=== PATIENT | female | born 1995 | race Caucasian/White ===

== ENCOUNTER 2016-10-28 11:58 | Emergency (ER) | payer BC, OTHER ==
--- NOTE | 2016-10-28 12:08 | ER Document Report ---
ED Medical Screen (RME) - General Stated Complaint: POSSIBLE SYNCOPE Notes: Patient went to the OB today for evaluation of cramping all over. distress test was completed at office and OB states this is not an OB problem and requested patient come to the emergency room for further evaluation. She had a syncopal episode at the OBs office, patient has a history of POTS. Patient has a history of anemia. Only complaints patient has is muscle cramping all over, and feeling jittery. OB requested a 12-lead EKG be done. I have greeted and performed a rapid initial assessment of this patient. A comprehensive ED assessment and evaluation of the patient, analysis of test results and completion of the medical decision making process will be conducted by additional ED providers. TRAVEL OUTSIDE OF THE [place] IN LAST 30 DAYS: No
[2016-10-28 12:53] LABS: MEAN CORPUSCULAR HEMOGLOBIN 28.5 pg (27.0-33.4); MEAN CORPUSCULAR HGB CONC 33.4 g/dL (32.0-36.0); MEAN CORPUSCULAR VOLUME 85 fl (80-97); RED BLOOD COUNT 3.16 10^6/uL (3.72-5.28); RED CELL DISTRIBUTION WIDTH 13.6 % (11.5-14.0); WHITE BLOOD COUNT 10.6 10^3/uL (4.0-10.5)
[2016-10-28 13:14] LABS: ALANINE AMINOTRANSFERASE 18 U/L (9-52); ALBUMIN 3.9 g/dL (3.5-5.0); ALKALINE PHOSPHATASE 115 U/L (38-126); ANION GAP 10 (5-19); ASPARTATE AMINO TRANSFERASE 16 U/L (14-36); BILIRUBIN,DIRECT 0.1 mg/dL (0.0-0.4); BILIRUBIN,TOTAL 0.4 mg/dL (0.2-1.3); BLOOD UREA NITROGEN 10 mg/dL (7-20); CALCIUM 10.8 mg/dL (8.4-10.2); CARBON DIOXIDE 24 mmol/L (22-30); CHLORIDE 102 mmol/L (98-107); CREATINE KINASE 28 U/L (30-135); CREATININE RESULT 0.62 mg/dL (0.52-1.25); GLUCOSE 78 mg/dL (75-110); LIPASE 70.4 U/L (23-300); POTASSIUM 4.3 mmol/L (3.6-5.0); SODIUM 136.3 mmol/L (137-145)
[2016-10-28 13:17] LABS: BAND NEUTROPHILS % (MANUAL) 2 % (3-5); BASOPHILS % (MANUAL) 0 % (0-2); EOSINOPHILS % (MANUAL) 0 % (0-6); LYMPHOCYTES % (MANUAL) 18 % (13-45); TOTAL CELLS COUNTED 100
[2016-10-28 13:19] LABS: HYPOCHROMASIA SLIGHT; OVALOCYTES SLIGHT; POIKILOCYTOSIS SLIGHT; POLYCHROMASIA 1+; ROULEAUX SLIGHT; TOXIC GRANULATION 1+
--- NOTE | 2016-10-28 13:42 | ER Document Report ---
ED General - General Chief Complaint: Fainting Stated Complaint: POSSIBLE SYNCOPE Mode of Arrival: Ambulatory Information source: Patient Notes: This is a 21-year-old female at 36+4, who has a history of POTS. Patient states that she has had lower pelvic pain and pressure since yesterday. This discomfort has been constant and not intermittent. Today, she felt nauseated before she ate breakfast. Also she had the persistent lower pelvic discomfort so she asked her family to take her to the OB clinic. She states that the OB clinic she was told that her blood pressure was "high" at 135/92. As she was walking from one [facility] clinic to the other she states that she felt dizzy and could tell that she was about to pass out. At that point her mom caught her and lowered her to the ground. She did have a syncopal episode. She did not fall or hit her head. Her family states that she was unconscious for just a few moments. At that point EMS was called and patient was transported to the emergency department. Patient tells me that this episode of syncope is very similar to her prior episode secondary to POTS. At time of my evaluation she states she is feeling fine. She does still have the lower pelvic pressure and pain which is been constant since yesterday. She denies any vaginal bleeding or loss of fluid. She reports good movement. TRAVEL OUTSIDE OF THE [place] IN LAST 30 DAYS: No - Related Data Allergies/Adverse Reactions: No Known Allergies Allergy (Unverified 10/28/16 12:07) Past Medical History - General Information source: Patient - Social History Smoking Status: Former Smoker Frequency of alcohol use: None Drug Abuse: None Family History: Reviewed & Not Pertinent - Past Medical History Cardiac Medical History: Reports: Other - POTS Renal/ Medical History: Denies: Hx Peritoneal Dialysis Surgical Hx: Negative - Immunizations Hx Diphtheria, Pertussis, Tetanus Vaccination: Yes Review of Systems - Review of Systems Constitutional: No symptoms reported. denies: Chills, Fever EENT: No symptoms reported Cardiovascular: See HPI, Syncope. denies: Chest pain, Palpitations Respiratory: See HPI. denies: Cough, Hurts to breathe, Short of breath Gastrointestinal: See HPI, Constipation. denies: Diarrhea, Vomiting Genitourinary: No symptoms reported. denies: Burning, Dysuria Female Genitourinary: No symptoms reported. denies: Vaginal discharge, Vaginal bleeding Musculoskeletal: No symptoms reported Neurological/Psychological: No symptoms reported Physical Exam - Vital signs Vitals: Temp Pulse Resp BP Pulse Ox 98.1 F 50 L 16 106/54 L 100 10/28/16 12:15 10/28/16 12:15 10/28/16 12:15 10/28/16 12:15 10/28/16 12:15 - Notes Notes: PHYSICAL EXAMINATION: VS Noted, FHT: 132 GENERAL: Well-appearing, well-nourished and in no acute distress. Smiling, pleasant and conversant. HEAD: Atraumatic, normocephalic. EYES: Pupils equal round and reactive to light, extraocular movements intact, sclera anicteric, conjunctiva are normal. ENT: nares patent, oropharynx clear without exudates. Moist mucous membranes. NECK: Normal range of motion, supple without lymphadenopathy LUNGS: Breath sounds clear to auscultation bilaterally and equal. No wheezes rales or rhonchi. HEART: Regular rate and rhythm without murmurs ABDOMEN: Soft, gravid, nontender, normoactive bowel sounds. No guarding, no rebound. No masses appreciated. EXTREMITIES: Normal range of motion, no pitting or edema. No cyanosis. NEUROLOGICAL: Cranial nerves grossly intact. Normal speech. No gross focal motor or sensory deficits appreciated. PSYCH: Normal mood, normal affect. SKIN: Warm, Dry, normal turgor, no rashes or lesions noted. Course - Re-evaluation Re-evalutation: 10/28/16 13:57 Patient labs and EKG reviewed. She is remained hemodynamically stable in the emergency department. Discussed the case with on-call DIRECTOR STARS Dr Nolasco who agrees with sending patient upstairs to L&D for labor check and monitoring. - Vital Signs Vital signs: Temp Pulse Resp BP Pulse Ox 98.4 F 60 17 108/56 L 99 10/28/16 14:00 10/28/16 14:00 10/28/16 14:00 10/28/16 14:00 10/28/16 14:00 - Laboratory Result Diagrams: 10/28/16 12:31 10/28/16 12:31 Laboratory results interpreted by me: 10/28/16 10/28/16 12:31 12:31 WBC 10.6 H RBC 3.16 L Hgb 9.0 L Hct 27.0 L Band Neutrophils % 2 L Metamyelocytes % 1 H Myelocytes % 1 H Sodium 136.3 L Calcium 10.8 H Creatine Kinase 28 L - EKG Interpretation by Me Additional EKG results interpreted by me: 10/28/16 13:59 EKG at 1333 demonstrates sinus arrhythmia with a rate in the 60s. There are nonspecific T-wave changes. No ST elevation or depression. QRS, AK and QTC intervals are within normal limits. Discharge - Discharge Clinical Impression: Third trimester , Pelvic pain affecting Syncope Qualifiers: Syncope type: unspecified Qualified Code(s): R55 - Syncope and collapse Condition: Stable Disposition: LABOR CHECK Additional Instructions: Proceed to L&D for further evaluation and monitoring per OB Dr. Nolasco. Further discharge and follow up instructions as per Dr. Nolasco. Referrals: GIBRAN TREIVZO MD [Primary Care Provider] - Follow up as needed
[2016-10-28 14:36] VITALS: BP 108/56
--- NOTE | 2016-10-28 18:25 | EKG REPORT ---
SEVERITY:- OTHERWISE NORMAL ECG - SINUS ARRHYTHMIA, RATE 44-75 : Confirmed by: Yusef Mcgill MD 28-Oct-2016 18:24:54
[2016-10-31 12:31] LABS: PATH REVIEW PATHOLOGIST REVIEWED
== END 2016-10-28 14:00 | disposition admitted as inpatient to this hospital (09) ==
LOC: ER 11:58
DX: O26.893 Other specified pregnancy related conditions, third trimester (principal); R10.2 Pelvic and perineal pain; R55 Syncope and collapse; K59.00 Constipation, unspecified; Z3A.36 36 weeks gestation of pregnancy
CPT/HCPCS: 36415; 59025; 80053; 80307; 81005; 82550; 83690; 85025; 87210; 93005; 93010; 99284

== ENCOUNTER 2016-10-28 14:10 | Outpatient (CLI) | payer BC, OTHER ==
[2016-10-28 15:34] LABS: APPEARANCE,URINE SLIGHTLY-CLOUDY; BILIRUBIN,URINE NEGATIVE (NEGATIVE); GLUCOSE, URINE NEGATIVE (NEGATIVE); KETONES,URINE NEGATIVE (NEGATIVE); LEUKOCYTE ESTERASE,URINE TRACE (NEGATIVE); NITRITE,URINE NEGATIVE (NEGATIVE); PROTEIN,URINE NEGATIVE (NEGATIVE); URINE SPECIFIC GRAVITY 1.004; UROBILINOGEN,URINE NEGATIVE mg/dL (<2.0)
[2016-10-28 15:48] LABS: URINE BARBITURATES SCREEN NEGATIVE; URINE METHADONE SCREEN NEGATIVE; URINE OPIATES LOW NEGATIVE; URINE PHENCYCLIDINE SCREEN NEGATIVE
--- NOTE | 2016-10-28 16:05 | Non Stress Test Report ---
Non Stress Test Datetime Report Generated by CPN: 10/28/2016 16:05 INDICATION Indication for Study: Ordered by Provider MONITORING Monitor Explained: Monitor Explained; Test Explained; Patient Verbalized Understanding Time on Monitor: 10/28/2016 14:29 NST INTERVENTIONS NST Interventions: PO Hydration; Reposition Patient Physician Notified NST: Marely Pelaez, CNM BABY A: [id number] BABY A Movement : Present Contraction Frequency : Irregular FHR Baseline : 130 Accelerations : 15X15 Decelerations : None Variability : Moderate 6-25bpm NST Review: Meets Criteria for Reactive NST NST Review and Verified By : BRUNO Penn Results: Reactive NST REPORT Report Trigger: Send Report
== END 2016-10-28 16:05 | disposition home or self-care (01) ==
LOC: LC 14:10
PROVIDERS: ATTEND Specialist
PROC: 4A1HXCZ Monitoring of Products of Conception, Cardiac Rate, External Approach (ICD-10-PCS; principal; 2016-10-28)
DX: O47.03 False labor before 37 completed weeks of gestation, third trimester (principal); Z3A.36 36 weeks gestation of pregnancy
CPT/HCPCS: 59025; 80307; 81005; 87210

== ENCOUNTER 2016-11-03 14:37 | Outpatient (CLI) | payer BC, OTHER ==
[2016-11-03 15:28] LABS: AMNISURE (ROM) NEGATIVE (NEGATIVE)
--- NOTE | 2016-11-03 15:41 | Non Stress Test Report ---
Non Stress Test Datetime Report Generated by CPN: 11/03/2016 15:40 DEMOGRAPHIC EGA NST: 37.3 INDICATION Indication for Study: Other MONITORING Monitor Explained: Monitor Explained; Test Explained; Patient Verbalized Understanding Time on Monitor: 11/03/2016 15:01 Time off Monitor: 11/03/2016 15:23 NST Duration: 22 NST INTERVENTIONS NST Interventions: None Physician Notified NST: P. Pelaez CNM BABY A: [id number] BABY A Movement : Present Contraction Frequency : irregular FHR Baseline : 135 Accelerations : 15X15 Decelerations : None Variability : Moderate 6-25bpm NST Review: Meets Criteria for Reactive NST NST Review and Verified By : Vincent Norwoodavachina RNC NST Results: Reactive NST REPORT Report Trigger: Send Report
[2016-11-03 16:05] LABS: APPEARANCE,URINE CLOUDY; BILIRUBIN,URINE NEGATIVE (NEGATIVE); GLUCOSE, URINE NEGATIVE (NEGATIVE); KETONES,URINE NEGATIVE (NEGATIVE); LEUKOCYTE ESTERASE,URINE SMALL (NEGATIVE); NITRITE,URINE NEGATIVE (NEGATIVE); PROTEIN,URINE NEGATIVE (NEGATIVE); URINE SPECIFIC GRAVITY 1.012; UROBILINOGEN,URINE NEGATIVE mg/dL (<2.0)
[2016-11-03 16:28] LABS: URINE BARBITURATES SCREEN NEGATIVE; URINE METHADONE SCREEN NEGATIVE; URINE OPIATES LOW NEGATIVE; URINE PHENCYCLIDINE SCREEN NEGATIVE
== END 2016-11-03 17:01 | disposition home or self-care (01) ==
LOC: LC 14:37
PROVIDERS: ATTEND Obstetrics & Gynecology
PROC: 4A1HXCZ Monitoring of Products of Conception, Cardiac Rate, External Approach (ICD-10-PCS; principal; 2016-11-03)
DX: O47.1 False labor at or after 37 completed weeks of gestation (principal); Z3A.37 37 weeks gestation of pregnancy
CPT/HCPCS: 59025; 80307; 81005; 84112

== ENCOUNTER 2016-11-12 16:11 | Outpatient (CLI) | payer BC, OTHER ==
[2016-11-12 16:23] LABS: APPEARANCE,URINE CLOUDY; BILIRUBIN,URINE NEGATIVE (NEGATIVE); GLUCOSE, URINE NEGATIVE (NEGATIVE); KETONES,URINE NEGATIVE (NEGATIVE); LEUKOCYTE ESTERASE,URINE SMALL (NEGATIVE); NITRITE,URINE NEGATIVE (NEGATIVE); PROTEIN,URINE NEGATIVE (NEGATIVE); URINE SPECIFIC GRAVITY 1.013; UROBILINOGEN,URINE NEGATIVE mg/dL (<2.0)
[2016-11-12 16:51] LABS: URINE BARBITURATES SCREEN NEGATIVE; URINE METHADONE SCREEN NEGATIVE; URINE OPIATES LOW NEGATIVE; URINE PHENCYCLIDINE SCREEN NEGATIVE
--- NOTE | 2016-11-12 21:51 | L&D Discharge Summary ---
OB Discharge Summary Datetime Report Generated by CPN: 11/12/2016 21:51 DISCHARGE DIAGNOSIS Diagnosis/Symptoms: False Labor Gestation: 38.4 Number of Babies in Womb: 1 Parity: 0 DIET/ACTIVITY/RESTRICTIONS Diet: Regular Activity: Normal Activity TEACHING/INSTRUCTIONS/REFERRALS Instructions Given To: Patient and family Instructions Understood: Patient Verbalized Understanding; Support Person Verbalized Understanding Referrals: None Educational Materials- Other: Term Labor care notes reviewed. DISCHARGE INFORMATION Discharged AMA: No Discharge Date/Time: 11/12/2016 18:20 Discharged To: Home Discharge Provider Name: Dr. Rodgers Accompanied By: Family Discharge Method: Ambulatory Condition: Stable FOLLOW UP INFORMATION Follow Up With: [facility] Follow Up On: As Scheduled Follow Up Phone Number: [facility] - Comments: Pt given a prescription for Diflucan and instructed that she can only take it one time during . Pt informed that she can take Monostat if the Diflucan does not work. Pt also informed that she can take Zyrtec to help with the irritation. Pt verbalized understanding.
== END 2016-11-12 18:20 | disposition home or self-care (01) ==
LOC: LC 16:11
PROVIDERS: ATTEND Student in an Organized Health Care Education/Training Program
PROC: 4A1HXCZ Monitoring of Products of Conception, Cardiac Rate, External Approach (ICD-10-PCS; principal; 2016-11-12)
DX: O47.1 False labor at or after 37 completed weeks of gestation (principal); Z3A.38 38 weeks gestation of pregnancy
CPT/HCPCS: 59025; 80307; 81005

== ENCOUNTER 2016-11-15 14:30 | Outpatient (CLI) | payer BC, OTHER ==
--- NOTE | 2016-11-15 14:42 | Non Stress Test Report ---
Non Stress Test Datetime Report Generated by CPN: 11/15/2016 14:42 DEMOGRAPHIC EGA NST: 38.5 INDICATION Indication for Study: Ordered by Provider MONITORING Monitor Explained: Monitor Explained; Test Explained; Patient Verbalized Understanding Time on Monitor: 11/12/2016 16:16 Time off Monitor: 11/12/2016 16:49 NST Duration: 33 NST INTERVENTIONS NST Interventions: PO Hydration Physician Notified NST: Dr. Rodgers BABY A: [id number] Movement : Present Contraction Frequency : Irreg FHR Baseline : 120 Accelerations : 15X15 Decelerations : None Variability : Moderate 6-25bpm NST Review: Meets Criteria for Reactive NST NST Review and Verified By : BRUNO NixonT Results: Reactive NST REPORT Report Trigger: Send Report
[2016-11-15 15:00] LABS: APPEARANCE,URINE CLOUDY; BILIRUBIN,URINE NEGATIVE (NEGATIVE); GLUCOSE, URINE NEGATIVE (NEGATIVE); KETONES,URINE NEGATIVE (NEGATIVE); LEUKOCYTE ESTERASE,URINE MODERATE (NEGATIVE); NITRITE,URINE NEGATIVE (NEGATIVE); PROTEIN,URINE NEGATIVE (NEGATIVE); URINE SPECIFIC GRAVITY 1.013; UROBILINOGEN,URINE NEGATIVE mg/dL (<2.0)
[2016-11-15 15:27] LABS: URINE BARBITURATES SCREEN NEGATIVE; URINE METHADONE SCREEN NEGATIVE; URINE OPIATES LOW NEGATIVE; URINE PHENCYCLIDINE SCREEN NEGATIVE
[2016-11-15 15:52] LABS: AMNISURE (ROM) NEGATIVE (NEGATIVE)
--- NOTE | 2016-11-15 15:55 | Non Stress Test Report ---
Non Stress Test Datetime Report Generated by CPN: 11/15/2016 15:55 DEMOGRAPHIC EGA NST: 39.1 INDICATION Indication for Study: Ordered by Provider Indication for Study (NST) Other: LC MONITORING Monitor Explained: Monitor Explained; Test Explained; Patient Verbalized Understanding Time on Monitor: 11/15/2016 14:48 Time off Monitor: 11/15/2016 15:54 NST Duration: 66 NST INTERVENTIONS NST Interventions: PO Hydration; Reposition Patient Physician Notified NST: Dr. Jaiden BABY A Movement : Present Movement : Present Contraction Frequency : irregular FHR Baseline : 125 Accelerations : 15X15 Decelerations : None Variability : Moderate 6-25bpm NST Review: Meets Criteria for Reactive NST NST Review and Verified By : Maria Teresa Joseph RN NST Results: Reactive NST REPORT Report Trigger: Send Report
--- NOTE | 2016-11-15 19:13 | L&D Discharge Summary ---
OB Discharge Summary Datetime Report Generated by CPN: 11/15/2016 19:12 DISCHARGE DIAGNOSIS Diagnosis/Symptoms: False Labor Gestation: 38.5 Number of Babies in Womb: 1 Parity: 0 DIET/ACTIVITY/RESTRICTIONS Diet: Regular Activity: Normal Activity TEACHING/INSTRUCTIONS/REFERRALS Instructions Given To: Patient/Mother Instructions Understood: Patient Verbalized Understanding; Support Person Verbalized Understanding Referrals: None Educational Materials- Other: [facility], Term DISCHARGE INFORMATION Discharged AMA: No Discharge Date/Time: 11/15/2016 16:11 Discharged To: Home Discharge Provider Name: Dr. Nolasco Accompanied By: Mother Discharge Method: Ambulatory Condition: Stable FOLLOW UP INFORMATION Follow Up With: [facility] Follow Up On: As Scheduled Follow Up Phone Number: [facility] - Comments: Pt given a prescription for Diflucan and instructed that she can only take it one time during . Pt informed that she can take Monostat if the Diflucan does not work. Pt also informed that she can take Zyrtec to help with the irritation. Pt verbalized understanding. GENERAL INSTR-CALL PROVIDER IF: Contractions: Contractions or cramps become more frequent than 8 in one hour or 4 in 20 minutes; Regular painful contractions every 5 minutes or less for one hour. Time your contractions from the beginning of one to the beginning of the next Pressure: Pressure in your vagina or lower abdomen that may feel like the baby is pushing down Gush of Fluid/Blood: Gush of fluid or blood from your vagina (it is normal to have spotting after vaginal exam or intercourse) Vaginal Discharge: Change in the type or amount of vaginal discharge Decreased Movement: Your baby is not moving as much as usual- 4 movements in 1 hour after drinking and resting on side Temperature: Temperature greater than 100.0(F) orally
--- NOTE | 2016-11-16 22:49 | L&D Discharge Summary ---
OB Discharge Summary Datetime Report Generated by CPN: 11/16/2016 22:45 DISCHARGE DIAGNOSIS Diagnosis/Symptoms: False Labor Gestation: 39.1 Number of Babies in Womb: 1 Parity: 0 DIET/ACTIVITY/RESTRICTIONS Diet: Regular Activity: Normal Activity TEACHING/INSTRUCTIONS/REFERRALS Instructions Given To: Patient/Mother Instructions Understood: Patient Verbalized Understanding; Support Person Verbalized Understanding Referrals: None Educational Materials- Other: [employer] [facility], Term DISCHARGE INFORMATION Discharged AMA: No Discharge Date/Time: 11/15/2016 16:11 Discharged To: Home Discharge Provider Name: Dr. Nolasco Accompanied By: Mother Discharge Method: Ambulatory Condition: Stable FOLLOW UP INFORMATION Follow Up With: [facility] Follow Up On: As Scheduled Follow Up Phone Number: [facility] - Comments: Pt given a prescription for Diflucan and instructed that she can only take it one time during . Pt informed that she can take Monostat if the Diflucan does not work. Pt also informed that she can take Zyrtec to help with the irritation. Pt verbalized understanding. GENERAL INSTR-CALL PROVIDER IF: Contractions: Contractions or cramps become more frequent than 8 in one hour or 4 in 20 minutes; Regular painful contractions every 5 minutes or less for one hour. Time your contractions from the beginning of one to the beginning of the next Pressure: Pressure in your vagina or lower abdomen that may feel like the baby is pushing down Gush of Fluid/Blood: Gush of fluid or blood from your vagina (it is normal to have spotting after vaginal exam or intercourse) Vaginal Discharge: Change in the type or amount of vaginal discharge Decreased Movement: Your baby is not moving as much as usual- 4 movements in 1 hour after drinking and resting on side Temperature: Temperature greater than 100.0(F) orally
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
--- NOTE | 2016-11-16 22:49 | L&D General Admission ---
General Admit Datetime Report Generated by CPN: 11/16/2016 22:45 INFORMATION Patient Age: 21 (10/28/2016 10:13:QS system process) EDC: 11/21/2016 00:00 (10/28/2016 14:23:Mary Garcia RN) : 1 (10/28/2016 14:23:Mary Garcia RN) Para: 0 (10/28/2016 14:23:Mary Garcia RN) Term: 0 (10/28/2016 14:23:Mary Garcia RN) : 0 (10/28/2016 14:23:Mary Garcia RN) Spontaneous Abortions: 0 (10/28/2016 14:23:Mary Garcia RN) Induced Abortions: 0 (10/28/2016 14:23:Mary Garcia RN) Livin (10/28/2016 14:23:Lulu Blackburn RN) Cesareans: 0 (10/28/2016 14:23:Mary Garcia RN) VBACs: 0 (10/28/2016 14:23:Mary Garcia RN) Ectopic: 0 (10/28/2016 14:23:Mary Garcia RN) Multiple Births: 0 (10/28/2016 14:23:Mary Garcia RN) Baby, Number in Womb: 1 (10/28/2016 14:23:Mary Garcia RN) CARE Primary Funding Coordinator: [email or web address] (10/28/2016 14:23:KAUSHAL Sanford) Adequate Care: Yes (10/28/2016 14:23:KAUSHAL Sanford) Prepregnancy Weight (lb): 119 (10/28/2016 14:23:Mary Garcia RN) Prepregnancy Weight (kg): 54.1 (10/28/2016 14:23:QS system process) Height (in): 65 (10/28/2016 14:39:QS system process) ALLERGIES Medication Allergy: No (10/28/2016 14:23:MARVEL Senior Medication Allergies: No Known Allergies (11/15/2016) (11/15/2016 14:40:QS system process) Medication Allergies: No Known Allergies (11/03/2016) (11/03/2016 14:55:QS system process) Medication Allergies: No Known Allergies (10/28/2016) (10/28/2016 12:07:QS system process) Latex Allergy: No Latex Allergies (10/28/2016 14:23:Mary Garcia RN) COMMUNICATION Primary Language: Andorran (10/28/2016 14:23:Mary Garcia RN) Medical Tx Preferred Language: Andorran (10/28/2016 14:23:Mary Beasley RN) DEMOGRAPHICS Address: [address] [place] [id number] (10/28/2016 10:13:QS system process) Zipcode: [address] (10/28/2016 10:13:QS system process) Home (10/28/2016 10:13:QS system process) N: [phone] (10/28/2016 10:13:QS system process) Next of Kin Name: BALJIT WELCH (10/28/2016 10:13:QS system process) Next of Kin (10/28/2016 10:13:QS system process) Next of Kin Relationship: [place] (10/28/2016 10:13:QS system process) Date of : 1995 (10/28/2016 10:13:QS system process) Marital Status: (10/28/2016 10:13:QS system process) Sex: Female (10/28/2016 10:13:QS system process) Race: (10/28/2016 10:13:QS system process) Ethnicity: Non- or (10/28/2016 10:13:QS system process) Alevism: Amish (10/28/2016 10:13:QS system process) DRUG AND ALCOHOL USE Alcohol: No (10/28/2016 14:23:Mary Garcia RN) Cigarettes: Never Smoker. [id number] (10/28/2016 14:23:Mary Garcia RN) Marijuana: No (10/28/2016 14:23:Mary Garcia RN) Cocaine: No (10/28/2016 14:23:Mary Garcia RN) Other Illicit Drugs: No (10/28/2016 14:23:Mary Garcia RN) VACCINE HISTORY Influenza Vaccine: No (10/28/2016 14:23:Carolyn Pierson RN) Pneumococcal Vaccine: No (10/28/2016 14:23:Carolyn Pierson RN) Tetanus Vaccine: Yes (10/28/2016 14:23:Carolyn Pierson RN) Tetanus Date: 08/31/16 (10/28/2016 14:23:Carolyn Pierson RN) Tdap Vaccine: Yes (10/28/2016 14:23:Carolyn Pierson RN) Tdap Date: 08/31/16 (10/28/2016 14:23:Carolyn Pierson RN) Hepatitis B Vaccine: No (10/28/2016 14:23:Carolyn Pierson RN) Java Web Developer: [facility] (10/28/2016 14:23:Mary Beasley RN) Feeding Preference: Breast (10/28/2016 14:23:Mary Garcia RN) Benefit of Breast Feed Discussed: Yes (10/28/2016 14:23:Mary Garcia RN) Circumcision: N/A (10/28/2016 14:23:Mary Garcia RN) Classes Attended: No (10/28/2016 14:23:Mary Garcia RN) Tubal Ligation: No (10/28/2016 14:23:Mary Garcia RN) Tubal Authorization Signed: N/A (10/28/2016 14:23:Mary Garcia RN) Consent: N/A (10/28/2016 14:23:Mary Garcia RN) Consent Signed: N/A (10/28/2016 14:23:Mary Garcia RN) Pain Management Plans: Epidural (10/28/2016 14:23:Mary Beasley RN) Plans for Labor and Delivery: Placenta Request (10/28/2016 14:23:Mary Beasley RN) Other Labor and Delivery Plans: Wants to keep placenta for encapsulation (10/28/2016 14:23:Mary Beasley RN) Support Person: Baljit Welch (10/28/2016 14:23:Carolyn Pierson RN) Support Person Relationship: Mother (10/28/2016 14:23:Carolyn Pierson RN) Cultural/Spritual Practice: No (10/28/2016 14:23:Mary Garcia RN) Spir/Cult Dietary Needs: No (10/28/2016 14:23:Mary Garcia RN) LIVING SITUATION/DISCHARGE PLAN Living Arrangements: House (10/28/2016 14:23:Mary Garcia RN) Adequate Access to:: Electric; Heat; Refrigeration; Plumbing/Running water; Phone; Transportation (10/28/2016 14:23:Mary Garcia RN) WIC Program: No (10/28/2016 14:23:Mary Garcia RN) Discharge Health Services Director Person: mom (10/28/2016 14:23:Carolyn Pierson RN) Person to Help after Discharge: mom (10/28/2016 14:23:Carolyn Pierson RN) Currently Using Commun Resources: No (10/28/2016 14:23:Carolyn Pierson RN) Outside Agency/Greeting Card Maker: No (10/28/2016 14:23:Carolyn Pierson RN) Car Seat for Discharge: Yes (10/28/2016 14:23:Mary Garcia RN) Adoption Requested: No (10/28/2016 14:23:Mary Garcia RN) Pt Contact w/ Post : N/A (10/28/2016 14:23:Mary Garcia RN) LABS Blood Type: A Positive (10/28/2016 14:23:Mary Garcia RN) Hemoglobin: 9.0 L (10/28/2016 12:31:QS system process) Hematocrit: 27.0 L (10/28/2016 12:31:QS system process) MCV: 85 (10/28/2016 12:31:QS system process) RPR/VDRL: Nonreactive (10/28/2016 14:23:Mary Garcia RN) Hepatitis B: Negative (10/28/2016 14:23:Mary Garcia RN) Rubella: Non-Immune (10/28/2016 14:23:Mary Garcia RN) OB/PREVIOUS HISTORY Previous Procedures: None (10/28/2016 14:23:Mary Beasley RN) Current Procedures: Ultrasound; NST (10/28/2016 14:23:Carolyn Pierson RN) History of Previous : No (10/28/2016 14:23:Carolyn Pierson RN) History of Gestational Diabetes: No (10/28/2016 14:23:Carolyn Pierson RN) History of PIH: No (10/28/2016 14:23:Carolyn Pierson RN) History of Incompetent Cervix: No (10/28/2016 14:23:Carolyn Pierson RN) History of Placenta Previa/Abrup: No (10/28/2016 14:23:Carolyn Pierson RN) History of Macrosomia: No (10/28/2016 14:23:Carolyn Pierson RN) History of IUGR: No (10/28/2016 14:23:Carolyn Pierson RN) History of Hemorrhage: No (10/28/2016 14:23:Carolyn Pierson RN) History of Loss/Stillborn: No (10/28/2016 14:23:Carolyn Pierson RN) History of : No (10/28/2016 14:23:Craolyn Pierson RN) History of D (Rh) Sensitization: No (10/28/2016 14:23:Carolyn Pierson RN) History Recurrent Loss/Stillborn: No (10/28/2016 14:23:Carolyn Pierson RN) History Depression/PP Depression: No (10/28/2016 14:23:Carolyn Pierson RN) History of Uterine Anomaly/YULIYA: No (10/28/2016 14:23:Carolyn Pierson RN) History of Infertility: No (10/28/2016 14:23:Carolyn Pierson RN) History of ART Treatment: No (10/28/2016 14:23:Carolyn Pierson RN) History of YULIYA: No (10/28/2016 14:23:Carolyn Pierson RN) Comments Obstetrical History: G1: current (10/28/2016 14:23:Carolyn Pierson RN) MEDICAL HISTORY Med Hx Diabetes: No (10/28/2016 14:23:Carolyn Pierson RN) Med Hx Hypertension: No (10/28/2016 14:23:Carolyn Pierson RN) Med Hx Heart Disease: No (10/28/2016 14:23:Carolyn Pierson RN) Med Hx Autoimmune Disorder: No (10/28/2016 14:23:Carolyn Pierson RN) Med Hx Kidney Disease/UTI: No (10/28/2016 14:23:Carolyn Pierson RN) Med Hx Neurologic/Epilepsy: No (10/28/2016 14:23:Carolyn Pierson RN) Med Hx Psychiatric Disorders: No (10/28/2016 14:23:Carolyn Pierson RN) Med Hx Hepatitis/Liver Disease: No (10/28/2016 14:23:Carolyn Pierson RN) Med Hx Varicosities/Phlebitis: No (10/28/2016 14:23:Carolyn Pierson RN) Med Hx Thyroid Dysfunction: No (10/28/2016 14:23:Carolyn Pierson RN) Med Hx Trauma/Violence: No (10/28/2016 14:23:Carolyn Pierson RN) Med Hx Blood Transfusion: No (10/28/2016 14:23:Carolyn Pierson RN) Med Hx Pulmonary (Asthma,TB): No (10/28/2016 14:23:Carolyn Pierson RN) Med Hx Breast: No (10/28/2016 14:23:Carolyn Pierson RN) Med Hx LAN ENGINEER Surgery: No (10/28/2016 14:23:Carolyn Pierson RN) Med Hx Hospitalization/Surgery: No (10/28/2016 14:23:Carolyn Pierson RN) Med Hx Anesthetic Complications: No (10/28/2016 14:23:Carolyn Pierson RN) Med Hx Abnormal Pap Smear: No (10/28/2016 14:23:Carolyn Pierson RN) Other Medical Diseases: No (10/28/2016 14:23:Carolyn Pierson RN) Med Hx Significant Family Hx: No (10/28/2016 14:23:Carolyn Pierson RN) INFECTIOUS HISTORY Inf Hx Gonorrhea: No (10/28/2016 14:23:Carolyn Pierson RN) Inf Hx Chlamydia: No (10/28/2016 14:23:Carolyn Pierson RN) Inf Hx Syphilis: No (10/28/2016 14:23:Carolyn Pierson RN) Inf Hx HIV/AIDS: No (10/28/2016 14:23:Carolyn Pierson RN) Inf Hx Human Papilloma Virus: No (10/28/2016 14:23:Carolyn Pierson RN) Inf Hx Pt/Partner Genital Herpes: No (10/28/2016 14:23:Carolyn Pierson RN) Inf Hx Tuberculosis/Exposure: No (10/28/2016 14:23:Carolyn Pierson RN) Inf Hx Hepatitis B,C: No (10/28/2016 14:23:Carolyn Pierson RN) Inf Hx Rash or Viral Illness: No (10/28/2016 14:23:Carolyn Pierson RN) GENETIC HISTORY Gen Hx Age >=35 at ROBERT: No (10/28/2016 14:23:Carolyn Pierson RN) Gen Hx Thalassemia: No (10/28/2016 14:23:Carolyn Pierson RN) Gen Hx Congenital Heart Defect: No (10/28/2016 14:23:Carolyn Pierson RN) Gen Hx Neural Tube Defect: No (10/28/2016 14:23:Carolyn Pierson RN) Gen Hx Down's Syndrome: No (10/28/2016 14:23:Carolyn Pierson RN) Gen Hx Feliciano-Sachs: No (10/28/2016 14:23:Carolyn Pierson RN) Gen Hx Aletha: No (10/28/2016 14:23:Carolyn Pierson RN) Gen Hx Familial Dysautonomia: No (10/28/2016 14:23:Carolyn Pierson RN) Gen Hx Sickle Cell Disease/Trait: No (10/28/2016 14:23:Carolyn Pierson RN) Gen Hx Hemophilia/Blood Disorder: No (10/28/2016 14:23:Carolyn Pierson RN) Gen Hx Muscular Dystrophy: No (10/28/2016 14:23:Carolyn Pierson RN) Gen Hx Cystic Fibrosis: No (10/28/2016 14:23:Carolyn Pierson RN) Gen Hx Huntingtons Chorea: No (10/28/2016 14:23:Carolyn Pierson RN) Gen Hx Mental Retardation/Autism: No (10/28/2016 14:23:Carolyn Pierson RN) Gen Hx Tested for Fragile X: No (10/28/2016 14:23:Carolyn Pierson RN) Gen Hx Other Inher/Chromosomal: No (10/28/2016 14:23:Carolyn Pierson RN) Gen Hx Maternal Metabolic DO: No (10/28/2016 14:23:Carolyn Pierson RN) Gen Hx Pt Father or FOB Defect: No (10/28/2016 14:23:Carolyn Pierson RN) Gen Hx Other Genetic History: No (10/28/2016 14:23:Carolyn Pierson RN) Gen Hx Drugs/Meds since LMP: Yes (10/28/2016 14:23:Carolyn Pierson RN) Gen Hx Medications: PNV, iron, vitamin C , tylenol , zyrtec (10/28/2016 14:23:Carolyn Pierosn RN)
--- NOTE | 2016-11-16 22:49 | Antepartum Discharge Summary ---
Antepartum DC Datetime Report Generated by CPN: 11/16/2016 22:45 Diet: Regular (11/15/2016 16:10:Mary Beasley RN) Activity: Normal Activity (11/15/2016 16:10:Mary Beasley RN) Instructions Given To: Patient/Mother (11/15/2016 16:10:Mary Beasley RN) Instructions Understood: Patient Verbalized Understanding; Support Person Verbalized Understanding (11/15/2016 16:10:Mary Beasley RN) Referrals: None (11/15/2016 16:10:Mary Beasley RN) Educational Materials- Other: Kick Counts, Term (11/15/2016 16:10:Mary Beasley RN) Discharged AMA: No (11/15/2016 16:10:Mary Beasley RN) Discharge Date/Time: 11/15/2016 16:11 (11/15/2016 16:10:Mary Beasley RN) Discharged To: Home (11/15/2016 16:10:Mary Beasley RN) Discharge Provider Name: Dr. Nolasco (11/15/2016 16:10:Mray Beasley RN) Accompanied By: Mother (11/15/2016 16:10:Mary Beasley RN) Discharge Method: Ambulatory (11/15/2016 16:10:Mary Beasley RN) Condition: Stable (11/15/2016 16:10:Mary Beasley RN) Follow Up With: [facility] (11/15/2016 16:10:Mary Beasley RN) Follow Up On: As Scheduled (11/15/2016 16:10:Mary Beasley RN) Follow Up Phone Number: [facility] - (11/15/2016 16:10:Mary Beasley RN) Contractions: Contractions or cramps become more frequent than 8 in one hour or 4 in 20 minutes; Regular painful contractions every 5 minutes or less for one hour. Time your contractions from the beginning of one to the beginning of the next (11/15/2016 16:10:Mary Beasley RN) Pressure: Pressure in your vagina or lower abdomen that may feel like the baby is pushing down (11/15/2016 16:10:Mary Beasley RN) Gush of Fluid/Blood: Gush of fluid or blood from your vagina (it is normal to have spotting after vaginal exam or intercourse) (11/15/2016 16:10:Mary Beasley RN) Vaginal Discharge: Change in the type or amount of vaginal discharge (11/15/2016 16:10:Mary Beasley RN) Decreased Movement: Your baby is not moving as much as usual- 4 movements in 1 hour after drinking and resting on side (11/15/2016 16:10:Mary Beasley RN) Temperature: Temperature greater than 100.0(F) orally (11/15/2016 16:10:Mary Beasley RN)
--- NOTE | 2016-11-17 04:48 | Antepartum Discharge Summary ---
Antepartum DC Datetime Report Generated by CPN: 11/17/2016 04:46 Diet: Regular (11/15/2016 16:10:Mary Beasley RN) Activity: Normal Activity (11/15/2016 16:10:Mary Beasley RN) Instructions Given To: Patient/Mother (11/15/2016 16:10:Mary Beasley RN) Instructions Understood: Patient Verbalized Understanding; Support Person Verbalized Understanding (11/15/2016 16:10:Mary Beasley RN) Referrals: None (11/15/2016 16:10:Mary Beasley RN) Educational Materials- Other: Kick Counts, Term (11/15/2016 16:10:Mary Beasley RN) Discharged AMA: No (11/15/2016 16:10:Mary Beasley RN) Discharge Date/Time: 11/15/2016 16:11 (11/15/2016 16:10:Mary Beasley RN) Discharged To: Home (11/15/2016 16:10:Mary Beasley RN) Discharge Provider Name: Dr. Nolasco (11/15/2016 16:10:Mary Beasley RN) Accompanied By: Mother (11/15/2016 16:10:Mary Beasley RN) Discharge Method: Ambulatory (11/15/2016 16:10:Mary Beasley RN) Condition: Stable (11/15/2016 16:10:Mary Beasley RN) Follow Up With: [facility] (11/15/2016 16:10:Mary Beasley RN) Follow Up On: As Scheduled (11/15/2016 16:10:Mary Beasley RN) Follow Up Phone Number: [facility] - (11/15/2016 16:10:Mary Beasley RN) Contractions: Contractions or cramps become more frequent than 8 in one hour or 4 in 20 minutes; Regular painful contractions every 5 minutes or less for one hour. Time your contractions from the beginning of one to the beginning of the next (11/15/2016 16:10:Mary Beasley RN) Pressure: Pressure in your vagina or lower abdomen that may feel like the baby is pushing down (11/15/2016 16:10:Mary Beasley RN) Gush of Fluid/Blood: Gush of fluid or blood from your vagina (it is normal to have spotting after vaginal exam or intercourse) (11/15/2016 16:10:Mary Beasley RN) Vaginal Discharge: Change in the type or amount of vaginal discharge (11/15/2016 16:10:Mary Beasley RN) Decreased Movement: Your baby is not moving as much as usual- 4 movements in 1 hour after drinking and resting on side (11/15/2016 16:10:Mary Beasley RN) Temperature: Temperature greater than 100.0(F) orally (11/15/2016 16:10:Mary Beasley RN)
--- NOTE | 2016-11-17 04:48 | L&D General Admission ---
General Admit Datetime Report Generated by CPN: 11/17/2016 04:46 INFORMATION Patient Age: 21 (10/28/2016 10:13:QS system process) EDC: 11/21/2016 00:00 (10/28/2016 14:23:Mary Garcia RN) : 1 (10/28/2016 14:23:Mary Garcia RN) Para: 0 (10/28/2016 14:23:Mary Garcia RN) Term: 0 (10/28/2016 14:23:Mary Garcia RN) : 0 (10/28/2016 14:23:Mary Garcai RN) Spontaneous Abortions: 0 (10/28/2016 14:23:Mary Garcia RN) Induced Abortions: 0 (10/28/2016 14:23:Mary Garcia RN) Livin (10/28/2016 14:23:Lulu Blackburn RN) Cesareans: 0 (10/28/2016 14:23:Mary Garcia RN) VBACs: 0 (10/28/2016 14:23:Mary Garcia RN) Ectopic: 0 (10/28/2016 14:23:Mary Garcia RN) Multiple Births: 0 (10/28/2016 14:23:Mary Garcia RN) Baby, Number in Womb: 1 (10/28/2016 14:23:Mary Garcia RN) CARE Primary Supervisor Inspection Department: [email or web address] (10/28/2016 14:23:KAUSHAL Sanford) Adequate Care: Yes (10/28/2016 14:23:KAUSHAL Sanford) Prepregnancy Weight (lb): 119 (10/28/2016 14:23:Mary Garcia RN) Prepregnancy Weight (kg): 54.1 (10/28/2016 14:23:QS system process) Height (in): 65 (10/28/2016 14:39:QS system process) ALLERGIES Medication Allergy: No (10/28/2016 14:23:MARVEL Senior Medication Allergies: No Known Allergies (11/15/2016) (11/15/2016 14:40:QS system process) Medication Allergies: No Known Allergies (11/03/2016) (11/03/2016 14:55:QS system process) Medication Allergies: No Known Allergies (10/28/2016) (10/28/2016 12:07:QS system process) Latex Allergy: No Latex Allergies (10/28/2016 14:23:Mary Garcia RN) COMMUNICATION Primary Language: Wallisian (10/28/2016 14:23:Mary Garcia RN) Medical Tx Preferred Language: Wallisian (10/28/2016 14:23:Mary Beasley RN) DEMOGRAPHICS Address: [address] [place] [id number] (10/28/2016 10:13:QS system process) Zipcode: [phone] (10/28/2016 10:13:QS system process) Home (10/28/2016 10:13:QS system process) N: [phone] (10/28/2016 10:13:QS system process) Next of Kin Name: BALJIT WELCH (10/28/2016 10:13:QS system process) Next of Kin (10/28/2016 10:13:QS system process) Next of Kin Relationship: MO (10/28/2016 10:13:QS system process) Date of : 1995 (10/28/2016 10:13:QS system process) Marital Status: (10/28/2016 10:13:QS system process) Sex: Female (10/28/2016 10:13:QS system process) Race: (10/28/2016 10:13:QS system process) Ethnicity: Non- or (10/28/2016 10:13:QS system process) Baptism: Mandaeism (10/28/2016 10:13:QS system process) DRUG AND ALCOHOL USE Alcohol: No (10/28/2016 14:23:Mary Garcia RN) Cigarettes: Never Smoker. [id number] (10/28/2016 14:23:Mary Garcia RN) Marijuana: No (10/28/2016 14:23:Mary Garcia RN) Cocaine: No (10/28/2016 14:23:Mary Garcia RN) Other Illicit Drugs: No (10/28/2016 14:23:Mary Garcia RN) VACCINE HISTORY Influenza Vaccine: No (10/28/2016 14:23:Carolyn Pierson RN) Pneumococcal Vaccine: No (10/28/2016 14:23:Carolyn Pierson RN) Tetanus Vaccine: Yes (10/28/2016 14:23:Carolyn Pierson RN) Tetanus Date: 08/31/16 (10/28/2016 14:23:Carolyn Pierson RN) Tdap Vaccine: Yes (10/28/2016 14:23:Carolyn Pierson RN) Tdap Date: 08/31/16 (10/28/2016 14:23:Carolyn Pierson RN) Hepatitis B Vaccine: No (10/28/2016 14:23:Carolyn Pierson RN) Records Management Manager: [facility] (10/28/2016 14:23:Mary Beasley RN) Feeding Preference: Breast (10/28/2016 14:23:Mary Garcia RN) Benefit of Breast Feed Discussed: Yes (10/28/2016 14:23:Mary Garcia RN) Circumcision: N/A (10/28/2016 14:23:Mary Garcia RN) Classes Attended: No (10/28/2016 14:23:Mary Garcia RN) Tubal Ligation: No (10/28/2016 14:23:Mary Garcia RN) Tubal Authorization Signed: N/A (10/28/2016 14:23:Mary Garcia RN) Consent: N/A (10/28/2016 14:23:Mary Garcia RN) Consent Signed: N/A (10/28/2016 14:23:Mary Garcia RN) Pain Management Plans: Epidural (10/28/2016 14:23:Mary Beasley RN) Plans for Labor and Delivery: Placenta Request (10/28/2016 14:23:Mary Beasley RN) Other Labor and Delivery Plans: Wants to keep placenta for encapsulation (10/28/2016 14:23:Mary Beasley RN) Support Person: Baljit Welch (10/28/2016 14:23:Carolyn Pierson RN) Support Person Relationship: Mother (10/28/2016 14:23:Carolyn Pierson RN) Cultural/Spritual Practice: No (10/28/2016 14:23:Mary Garcia RN) Spir/Cult Dietary Needs: No (10/28/2016 14:23:Mary Garcia RN) LIVING SITUATION/DISCHARGE PLAN Living Arrangements: House (10/28/2016 14:23:Mary Garcia RN) Adequate Access to:: Electric; Heat; Refrigeration; Plumbing/Running water; Phone; Transportation (10/28/2016 14:23:Mary Garcia RN) WIC Program: No (10/28/2016 14:23:Mary Garcia RN) Discharge Quality Control Coordinator Person: mom (10/28/2016 14:23:Carolyn Pierson RN) Person to Help after Discharge: mom (10/28/2016 14:23:Carolyn Pierson RN) Currently Using Commun Resources: No (10/28/2016 14:23:Carolyn Pierson RN) Outside Agency/Rope Tow Operator: No (10/28/2016 14:23:Carolyn Pierson RN) Car Seat for Discharge: Yes (10/28/2016 14:23:Mary Garcia RN) Adoption Requested: No (10/28/2016 14:23:Mary Garcia RN) Pt Contact w/ Post : N/A (10/28/2016 14:23:Mary Garcia RN) LABS Blood Type: A Positive (10/28/2016 14:23:Mary Garcia RN) Hemoglobin: 9.0 L (10/28/2016 12:31:QS system process) Hematocrit: 27.0 L (10/28/2016 12:31:QS system process) MCV: 85 (10/28/2016 12:31:QS system process) RPR/VDRL: Nonreactive (10/28/2016 14:23:Mary Garcia RN) Hepatitis B: Negative (10/28/2016 14:23:Mary Garcia RN) Rubella: Non-Immune (10/28/2016 14:23:Mary Garcia RN) OB/PREVIOUS HISTORY Previous Procedures: None (10/28/2016 14:23:Mary Beasley RN) Current Procedures: Ultrasound; NST (10/28/2016 14:23:Carolyn Pierson RN) History of Previous : No (10/28/2016 14:23:Carolyn Pierson RN) History of Gestational Diabetes: No (10/28/2016 14:23:Carolyn Pierson RN) History of PIH: No (10/28/2016 14:23:Carolyn Pierson RN) History of Incompetent Cervix: No (10/28/2016 14:23:Carolyn Pierson RN) History of Placenta Previa/Abrup: No (10/28/2016 14:23:Carolyn Pierson RN) History of Macrosomia: No (10/28/2016 14:23:Carolyn Pierson RN) History of IUGR: No (10/28/2016 14:23:Carolyn Pierson RN) History of Hemorrhage: No (10/28/2016 14:23:Carolyn Pierson RN) History of Loss/Stillborn: No (10/28/2016 14:23:Carolyn Pierson RN) History of : No (10/28/2016 14:23:Carolyn Pierson RN) History of D (Rh) Sensitization: No (10/28/2016 14:23:Carolyn Pierson RN) History Recurrent Loss/Stillborn: No (10/28/2016 14:23:Carolyn Pierson RN) History Depression/PP Depression: No (10/28/2016 14:23:Carolyn Pierson RN) History of Uterine Anomaly/YULIYA: No (10/28/2016 14:23:Carolyn Pierson RN) History of Infertility: No (10/28/2016 14:23:Carolyn Pierson RN) History of ART Treatment: No (10/28/2016 14:23:Carolyn Pierson RN) History of YULIYA: No (10/28/2016 14:23:Carolyn Pierson RN) Comments Obstetrical History: G1: current (10/28/2016 14:23:Carolyn Pierson RN) MEDICAL HISTORY Med Hx Diabetes: No (10/28/2016 14:23:Carolyn Pierson RN) Med Hx Hypertension: No (10/28/2016 14:23:Carolyn Pierson RN) Med Hx Heart Disease: No (10/28/2016 14:23:Carolyn Pierson RN) Med Hx Autoimmune Disorder: No (10/28/2016 14:23:Carolyn Pierson RN) Med Hx Kidney Disease/UTI: No (10/28/2016 14:23:Carolyn Pierson RN) Med Hx Neurologic/Epilepsy: No (10/28/2016 14:23:Carolyn Pierson RN) Med Hx Psychiatric Disorders: No (10/28/2016 14:23:Carolyn Pierson RN) Med Hx Hepatitis/Liver Disease: No (10/28/2016 14:23:Carolyn Pierson RN) Med Hx Varicosities/Phlebitis: No (10/28/2016 14:23:Carolyn Pierson RN) Med Hx Thyroid Dysfunction: No (10/28/2016 14:23:Carolyn Pierson RN) Med Hx Trauma/Violence: No (10/28/2016 14:23:Carolyn Pierson RN) Med Hx Blood Transfusion: No (10/28/2016 14:23:Carolyn Pierson RN) Med Hx Pulmonary (Asthma,TB): No (10/28/2016 14:23:Carolyn Pierson RN) Med Hx Breast: No (10/28/2016 14:23:Carolyn Pierson RN) Med Hx DOWN FILLER Surgery: No (10/28/2016 14:23:Carolyn Pierson RN) Med Hx Hospitalization/Surgery: No (10/28/2016 14:23:Carolyn Pierson RN) Med Hx Anesthetic Complications: No (10/28/2016 14:23:Carolyn Pierson RN) Med Hx Abnormal Pap Smear: No (10/28/2016 14:23:Carolyn Pierson RN) Other Medical Diseases: No (10/28/2016 14:23:Carolyn Pierson RN) Med Hx Significant Family Hx: No (10/28/2016 14:23:Carolyn Pierson RN) INFECTIOUS HISTORY Inf Hx Gonorrhea: No (10/28/2016 14:23:Carolyn Pierson RN) Inf Hx Chlamydia: No (10/28/2016 14:23:Carolyn Pierson RN) Inf Hx Syphilis: No (10/28/2016 14:23:Carolyn Pierson RN) Inf Hx HIV/AIDS: No (10/28/2016 14:23:Carolyn Pierson RN) Inf Hx Human Papilloma Virus: No (10/28/2016 14:23:Carolyn Pierson RN) Inf Hx Pt/Partner Genital Herpes: No (10/28/2016 14:23:Carolyn Pierson RN) Inf Hx Tuberculosis/Exposure: No (10/28/2016 14:23:Carolyn Pierson RN) Inf Hx Hepatitis B,C: No (10/28/2016 14:23:Carolyn Pierson RN) Inf Hx Rash or Viral Illness: No (10/28/2016 14:23:Carolyn Pierson RN) GENETIC HISTORY Gen Hx Age >=35 at ROBERT: No (10/28/2016 14:23:Carolyn Pierson RN) Gen Hx Thalassemia: No (10/28/2016 14:23:Carolyn Pierson RN) Gen Hx Congenital Heart Defect: No (10/28/2016 14:23:Carolyn Pierson RN) Gen Hx Neural Tube Defect: No (10/28/2016 14:23:Carolyn Pierson RN) Gen Hx Down's Syndrome: No (10/28/2016 14:23:Carolyn Pierson RN) Gen Hx Feliciano-Sachs: No (10/28/2016 14:23:Carolyn Pierson RN) Gen Hx Aletha: No (10/28/2016 14:23:Carolyn Pierson RN) Gen Hx Familial Dysautonomia: No (10/28/2016 14:23:Carolyn Pierson RN) Gen Hx Sickle Cell Disease/Trait: No (10/28/2016 14:23:Carolyn Pierson RN) Gen Hx Hemophilia/Blood Disorder: No (10/28/2016 14:23:Carolyn Pierson RN) Gen Hx Muscular Dystrophy: No (10/28/2016 14:23:Carolyn Pierson RN) Gen Hx Cystic Fibrosis: No (10/28/2016 14:23:Carolyn Pierson RN) Gen Hx Huntingtons Chorea: No (10/28/2016 14:23:Carolyn Pierson RN) Gen Hx Mental Retardation/Autism: No (10/28/2016 14:23:Carolyn Pierson RN) Gen Hx Tested for Fragile X: No (10/28/2016 14:23:Carolyn Pierson RN) Gen Hx Other Inher/Chromosomal: No (10/28/2016 14:23:Carolyn Pierson RN) Gen Hx Maternal Metabolic DO: No (10/28/2016 14:23:Carolyn Pierson RN) Gen Hx Pt Father or FOB Defect: No (10/28/2016 14:23:Carolyn Pierson RN) Gen Hx Other Genetic History: No (10/28/2016 14:23:Carolyn Pierson RN) Gen Hx Drugs/Meds since LMP: Yes (10/28/2016 14:23:Carolyn Pierson RN) Gen Hx Medications: PNV, iron, vitamin C , tylenol , zyrtec (10/28/2016 14:23:Carolyn Pierson RN)
--- NOTE | 2016-11-17 04:48 | L&D Discharge Summary ---
OB Discharge Summary Datetime Report Generated by CPN: 11/17/2016 04:46 DISCHARGE DIAGNOSIS Diagnosis/Symptoms: False Labor Gestation: 39.1 Number of Babies in Womb: 1 Parity: 0 DIET/ACTIVITY/RESTRICTIONS Diet: Regular Activity: Normal Activity TEACHING/INSTRUCTIONS/REFERRALS Instructions Given To: Patient/Mother Instructions Understood: Patient Verbalized Understanding; Support Person Verbalized Understanding Referrals: None Educational Materials- Other: Kick Counts, Term DISCHARGE INFORMATION Discharged AMA: No Discharge Date/Time: 11/15/2016 16:11 Discharged To: Home Discharge Provider Name: Dr. Nolasco Accompanied By: Mother Discharge Method: Ambulatory Condition: Stable FOLLOW UP INFORMATION Follow Up With: [facility] Follow Up On: As Scheduled Follow Up Phone Number: [facility] - Comments: Pt given a prescription for Diflucan and instructed that she can only take it one time during . Pt informed that she can take Monostat if the Diflucan does not work. Pt also informed that she can take Zyrtec to help with the irritation. Pt verbalized understanding. GENERAL INSTR-CALL PROVIDER IF: Contractions: Contractions or cramps become more frequent than 8 in one hour or 4 in 20 minutes; Regular painful contractions every 5 minutes or less for one hour. Time your contractions from the beginning of one to the beginning of the next Pressure: Pressure in your vagina or lower abdomen that may feel like the baby is pushing down Gush of Fluid/Blood: Gush of fluid or blood from your vagina (it is normal to have spotting after vaginal exam or intercourse) Vaginal Discharge: Change in the type or amount of vaginal discharge Decreased Movement: Your baby is not moving as much as usual- 4 movements in 1 hour after drinking and resting on side Temperature: Temperature greater than 100.0(F) orally
--- NOTE | 2016-11-17 10:48 | L&D Discharge Summary ---
OB Discharge Summary Datetime Report Generated by CPN: 11/17/2016 10:45 DISCHARGE DIAGNOSIS Diagnosis/Symptoms: False Labor Gestation: 39.1 Number of Babies in Womb: 1 Parity: 0 DIET/ACTIVITY/RESTRICTIONS Diet: Regular Activity: Normal Activity TEACHING/INSTRUCTIONS/REFERRALS Instructions Given To: Patient/Mother Instructions Understood: Patient Verbalized Understanding; Support Person Verbalized Understanding Referrals: None Educational Materials- Other: Kick Counts, Term DISCHARGE INFORMATION Discharged AMA: No Discharge Date/Time: 11/15/2016 16:11 Discharged To: Home Discharge Provider Name: Dr. Nolasco Accompanied By: Mother Discharge Method: Ambulatory Condition: Stable FOLLOW UP INFORMATION Follow Up With: [facility] Follow Up On: As Scheduled Follow Up Phone Number: [facility] - Comments: Pt given a prescription for Diflucan and instructed that she can only take it one time during . Pt informed that she can take Monostat if the Diflucan does not work. Pt also informed that she can take Zyrtec to help with the irritation. Pt verbalized understanding. GENERAL INSTR-CALL PROVIDER IF: Contractions: Contractions or cramps become more frequent than 8 in one hour or 4 in 20 minutes; Regular painful contractions every 5 minutes or less for one hour. Time your contractions from the beginning of one to the beginning of the next Pressure: Pressure in your vagina or lower abdomen that may feel like the baby is pushing down Gush of Fluid/Blood: Gush of fluid or blood from your vagina (it is normal to have spotting after vaginal exam or intercourse) Vaginal Discharge: Change in the type or amount of vaginal discharge Decreased Movement: Your baby is not moving as much as usual- 4 movements in 1 hour after drinking and resting on side Temperature: Temperature greater than 100.0(F) orally
--- NOTE | 2016-11-17 10:48 | L&D General Admission ---
General Admit Datetime Report Generated by CPN: 11/17/2016 10:45 INFORMATION Patient Age: 21 (10/28/2016 10:13:QS system process) EDC: 11/21/2016 00:00 (10/28/2016 14:23:Mary Garcia RN) : 1 (10/28/2016 14:23:Mary Garcia RN) Para: 0 (10/28/2016 14:23:Mary Garcia RN) Term: 0 (10/28/2016 14:23:Mary Garcia RN) : 0 (10/28/2016 14:23:Mary Garcia RN) Spontaneous Abortions: 0 (10/28/2016 14:23:Mary Garcia RN) Induced Abortions: 0 (10/28/2016 14:23:Mary Garcia RN) Livin (10/28/2016 14:23:Lulu Blackburn RN) Cesareans: 0 (10/28/2016 14:23:Mary Garcia RN) VBACs: 0 (10/28/2016 14:23:Mary Garcia RN) Ectopic: 0 (10/28/2016 14:23:Mary Garcia RN) Multiple Births: 0 (10/28/2016 14:23:Mary Garcia RN) Baby, Number in Womb: 1 (10/28/2016 14:23:Mary Garcia RN) CARE Primary Wastewater Manager: [facility] (10/28/2016 14:23:KAUSHAL Sanford) Adequate Care: Yes (10/28/2016 14:23:KAUSHAL Sanford) Prepregnancy Weight (lb): 119 (10/28/2016 14:23:Mary Garcia RN) Prepregnancy Weight (kg): 54.1 (10/28/2016 14:23:QS system process) Height (in): 65 (10/28/2016 14:39:QS system process) ALLERGIES Medication Allergy: No (10/28/2016 14:23:MARVEL Senior Medication Allergies: No Known Allergies (11/15/2016) (11/15/2016 14:40:QS system process) Medication Allergies: No Known Allergies (11/03/2016) (11/03/2016 14:55:QS system process) Medication Allergies: No Known Allergies (10/28/2016) (10/28/2016 12:07:QS system process) Latex Allergy: No Latex Allergies (10/28/2016 14:23:Mary Garcia RN) COMMUNICATION Primary Language: Bolivian (10/28/2016 14:23:Mary Garcia RN) Medical Tx Preferred Language: Bolivian (10/28/2016 14:23:Mary Beasley RN) DEMOGRAPHICS Address: [address] [place] [id number] (10/28/2016 10:13:QS system process) Zipcode: [address] (10/28/2016 10:13:QS system process) Home (10/28/2016 10:13:QS system process) N: [phone] (10/28/2016 10:13:QS system process) Next of Kin Name: BALJIT WELCH (10/28/2016 10:13:QS system process) Next of Kin (10/28/2016 10:13:QS system process) Next of Kin Relationship: MO (10/28/2016 10:13:QS system process) Date of : 1995 (10/28/2016 10:13:QS system process) Marital Status: (10/28/2016 10:13:QS system process) Sex: Female (10/28/2016 10:13:QS system process) Race: (10/28/2016 10:13:QS system process) Ethnicity: Non- or (10/28/2016 10:13:QS system process) Jew: Rastafarian (10/28/2016 10:13:QS system process) DRUG AND ALCOHOL USE Alcohol: No (10/28/2016 14:23:Mary Garcia RN) Cigarettes: Never Smoker. [phone] (10/28/2016 14:23:Mary Garcia RN) Marijuana: No (10/28/2016 14:23:Mary Garcia RN) Cocaine: No (10/28/2016 14:23:Mary Garcia RN) Other Illicit Drugs: No (10/28/2016 14:23:Mary Garcia RN) VACCINE HISTORY Influenza Vaccine: No (10/28/2016 14:23:Carolyn Pierson RN) Pneumococcal Vaccine: No (10/28/2016 14:23:Carolyn Pierson RN) Tetanus Vaccine: Yes (10/28/2016 14:23:Carolyn Pierson RN) Tetanus Date: 08/31/16 (10/28/2016 14:23:Carolyn Pierson RN) Tdap Vaccine: Yes (10/28/2016 14:23:Carolyn Pierson RN) Tdap Date: 08/31/16 (10/28/2016 14:23:Carolyn Pierson RN) Hepatitis B Vaccine: No (10/28/2016 14:23:Carolyn Pierson RN) Supervisor Meter Repair Shop: [facility] (10/28/2016 14:23:Mary Beasley RN) Feeding Preference: Breast (10/28/2016 14:23:Mary Garcia RN) Benefit of Breast Feed Discussed: Yes (10/28/2016 14:23:Mary Garcia RN) Circumcision: N/A (10/28/2016 14:23:Mary Garcia RN) Classes Attended: No (10/28/2016 14:23:Mary Garcia RN) Tubal Ligation: No (10/28/2016 14:23:Mary Garcia RN) Tubal Authorization Signed: N/A (10/28/2016 14:23:Mary Garcia RN) Consent: N/A (10/28/2016 14:23:Mary Garcia RN) Consent Signed: N/A (10/28/2016 14:23:Mary Garcia RN) Pain Management Plans: Epidural (10/28/2016 14:23:Mary Beasley RN) Plans for Labor and Delivery: Placenta Request (10/28/2016 14:23:Mary Beasley RN) Other Labor and Delivery Plans: Wants to keep placenta for encapsulation (10/28/2016 14:23:Mary Beasley RN) Support Person: Baljit Welch (10/28/2016 14:23:Carolyn Pierson RN) Support Person Relationship: Mother (10/28/2016 14:23:Carolyn Pierson RN) Cultural/Spritual Practice: No (10/28/2016 14:23:Mary Garcia RN) Spir/Cult Dietary Needs: No (10/28/2016 14:23:Mary Garcia RN) LIVING SITUATION/DISCHARGE PLAN Living Arrangements: House (10/28/2016 14:23:Mary Garcia RN) Adequate Access to:: Electric; Heat; Refrigeration; Plumbing/Running water; Phone; Transportation (10/28/2016 14:23:Mary Garcia RN) WIC Program: No (10/28/2016 14:23:Mary Garcia RN) Discharge Lead Caster Person: mom (10/28/2016 14:23:Carolyn Pierson RN) Person to Help after Discharge: mom (10/28/2016 14:23:Carolyn Pierson RN) Currently Using Commun Resources: No (10/28/2016 14:23:Carolyn Pierson RN) Outside Agency/Circulation Crew Leader: No (10/28/2016 14:23:Carolyn Pierson RN) Car Seat for Discharge: Yes (10/28/2016 14:23:Mary Garcia RN) Adoption Requested: No (10/28/2016 14:23:Mary Garcia RN) Pt Contact w/ Post : N/A (10/28/2016 14:23:Mary Garcia RN) LABS Blood Type: A Positive (10/28/2016 14:23:Mary Garcia RN) Hemoglobin: 9.0 L (10/28/2016 12:31:QS system process) Hematocrit: 27.0 L (10/28/2016 12:31:QS system process) MCV: 85 (10/28/2016 12:31:QS system process) RPR/VDRL: Nonreactive (10/28/2016 14:23:Mary Garcia RN) Hepatitis B: Negative (10/28/2016 14:23:Mary Garcia RN) Rubella: Non-Immune (10/28/2016 14:23:Mary Garcia RN) OB/PREVIOUS HISTORY Previous Procedures: None (10/28/2016 14:23:Mary Beasley RN) Current Procedures: Ultrasound; NST (10/28/2016 14:23:Carolyn Pierson RN) History of Previous : No (10/28/2016 14:23:Carolyn Pierson RN) History of Gestational Diabetes: No (10/28/2016 14:23:Carolyn Pierson RN) History of PIH: No (10/28/2016 14:23:Carolyn Pierson RN) History of Incompetent Cervix: No (10/28/2016 14:23:Carolyn Pierson RN) History of Placenta Previa/Abrup: No (10/28/2016 14:23:Carolyn Pierson RN) History of Macrosomia: No (10/28/2016 14:23:Carolyn Pierson RN) History of IUGR: No (10/28/2016 14:23:Carolyn Pierson RN) History of Hemorrhage: No (10/28/2016 14:23:Carolyn Pierson RN) History of Loss/Stillborn: No (10/28/2016 14:23:Carolyn Pierson RN) History of : No (10/28/2016 14:23:Carolyn Pierson RN) History of D (Rh) Sensitization: No (10/28/2016 14:23:Carolyn Pierson RN) History Recurrent Loss/Stillborn: No (10/28/2016 14:23:Carolyn Pierson RN) History Depression/PP Depression: No (10/28/2016 14:23:Carolyn Pierson RN) History of Uterine Anomaly/YULIYA: No (10/28/2016 14:23:Carolyn Pierson RN) History of Infertility: No (10/28/2016 14:23:Carolyn Pierson RN) History of ART Treatment: No (10/28/2016 14:23:Carolyn Pierson RN) History of YULIYA: No (10/28/2016 14:23:Carolyn Pierson RN) Comments Obstetrical History: G1: current (10/28/2016 14:23:Carolyn Pierson RN) MEDICAL HISTORY Med Hx Diabetes: No (10/28/2016 14:23:Carolyn Pierson RN) Med Hx Hypertension: No (10/28/2016 14:23:Carolyn Pierson RN) Med Hx Heart Disease: No (10/28/2016 14:23:Carolyn Pierson RN) Med Hx Autoimmune Disorder: No (10/28/2016 14:23:Carolyn Pierson RN) Med Hx Kidney Disease/UTI: No (10/28/2016 14:23:Carolyn Pierson RN) Med Hx Neurologic/Epilepsy: No (10/28/2016 14:23:Carolyn Pierson RN) Med Hx Psychiatric Disorders: No (10/28/2016 14:23:Carolyn Pierson RN) Med Hx Hepatitis/Liver Disease: No (10/28/2016 14:23:Carolyn Pierson RN) Med Hx Varicosities/Phlebitis: No (10/28/2016 14:23:Carolyn Pierson RN) Med Hx Thyroid Dysfunction: No (10/28/2016 14:23:Carolyn Pierson RN) Med Hx Trauma/Violence: No (10/28/2016 14:23:Carolyn Pierson RN) Med Hx Blood Transfusion: No (10/28/2016 14:23:Carolyn Pierson RN) Med Hx Pulmonary (Asthma,TB): No (10/28/2016 14:23:Carolyn Pierson RN) Med Hx Breast: No (10/28/2016 14:23:Carolyn Pierson RN) Med Hx WELLNESS CONSULTANT Surgery: No (10/28/2016 14:23:Carolyn Pierson RN) Med Hx Hospitalization/Surgery: No (10/28/2016 14:23:Carolyn Pierson RN) Med Hx Anesthetic Complications: No (10/28/2016 14:23:Carolyn Pierson RN) Med Hx Abnormal Pap Smear: No (10/28/2016 14:23:Carolyn Pierson RN) Other Medical Diseases: No (10/28/2016 14:23:Carolyn Pierson RN) Med Hx Significant Family Hx: No (10/28/2016 14:23:Carolyn Pierson RN) INFECTIOUS HISTORY Inf Hx Gonorrhea: No (10/28/2016 14:23:Carolyn Pierson RN) Inf Hx Chlamydia: No (10/28/2016 14:23:Carolyn Pierson RN) Inf Hx Syphilis: No (10/28/2016 14:23:Carolyn Pierson RN) Inf Hx HIV/AIDS: No (10/28/2016 14:23:Carolyn Pierson RN) Inf Hx Human Papilloma Virus: No (10/28/2016 14:23:Carolyn Pierson RN) Inf Hx Pt/Partner Genital Herpes: No (10/28/2016 14:23:Carolyn Pierson RN) Inf Hx Tuberculosis/Exposure: No (10/28/2016 14:23:Carolyn Pierson RN) Inf Hx Hepatitis B,C: No (10/28/2016 14:23:Carolyn Pierson RN) Inf Hx Rash or Viral Illness: No (10/28/2016 14:23:Carolyn Pierson RN) GENETIC HISTORY Gen Hx Age >=35 at ROBERT: No (10/28/2016 14:23:Carolyn Pierson RN) Gen Hx Thalassemia: No (10/28/2016 14:23:Carolyn Pierson RN) Gen Hx Congenital Heart Defect: No (10/28/2016 14:23:Carolyn Pierson RN) Gen Hx Neural Tube Defect: No (10/28/2016 14:23:Carolyn Pierson RN) Gen Hx Down's Syndrome: No (10/28/2016 14:23:Carolyn Pierson RN) Gen Hx Feliciano-Sachs: No (10/28/2016 14:23:Carolyn Pierson RN) Gen Hx Aletha: No (10/28/2016 14:23:Carolyn Pierson RN) Gen Hx Familial Dysautonomia: No (10/28/2016 14:23:Carolyn Pierson RN) Gen Hx Sickle Cell Disease/Trait: No (10/28/2016 14:23:Carolyn Pierson RN) Gen Hx Hemophilia/Blood Disorder: No (10/28/2016 14:23:Carolyn Pierson RN) Gen Hx Muscular Dystrophy: No (10/28/2016 14:23:Carolyn Pierson RN) Gen Hx Cystic Fibrosis: No (10/28/2016 14:23:Carolyn Pierson RN) Gen Hx [place] Chorea: No (10/28/2016 14:23:Carolyn Pierson RN) Gen Hx Mental Retardation/Autism: No (10/28/2016 14:23:Carolyn Pierson RN) Gen Hx Tested for Fragile X: No (10/28/2016 14:23:Carolyn Pierson RN) Gen Hx Other Inher/Chromosomal: No (10/28/2016 14:23:Carolyn Pierson RN) Gen Hx Maternal Metabolic DO: No (10/28/2016 14:23:Carolyn Pierson RN) Gen Hx Pt Father or FOB Defect: No (10/28/2016 14:23:Carolyn Pierson RN) Gen Hx Other Genetic History: No (10/28/2016 14:23:Carolyn Pierson RN) Gen Hx Drugs/Meds since LMP: Yes (10/28/2016 14:23:Carolyn Pierson RN) Gen Hx Medications: PNV, iron, vitamin C , tylenol , zyrtec (10/28/2016 14:23:Carolyn Pierson RN)
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
--- NOTE | 2016-11-17 10:48 | L&D Admission Assessment ---
LD ADM ASMT Datetime Report Generated by CPN: 11/17/2016 10:45 Assessment Type: Triage (11/15/2016 14:53:Mary Beasley RN) Weight (lb): 141 (11/15/2016 16:09:QS system process) Weight (lb): 141 (11/15/2016 14:48:QS system process) Weight (kg): 64.1 (11/15/2016 16:09:QS system process) Weight (kg): 64.1 (11/15/2016 14:48:QS system process) Total Wt Gain (lb): 22 (11/15/2016 16:09:QS system process) Total Wt Gain (lb): 22 (11/15/2016 14:48:QS system process) Wt Gain (kg): 9.9 (11/15/2016 16:09:QS system process) Wt Gain (kg): 9.9 (11/15/2016 14:48:QS system process) BMI: 23.5 (11/15/2016 16:09:QS system process) BMI: 23.5 (11/15/2016 14:48:QS system process) Pain Scale: 3 (11/15/2016 14:53:Mary Beasley RN) Pain Presence: Intermittent (11/15/2016 14:53:Mary Beasley RN) Pain Type: Cramping; Contraction (11/15/2016 14:53:Mary Beasley RN) Pain Location: Abdomen; Back (11/15/2016 14:53:Mary Beasley RN) Pain Related to Contraction: Yes (11/15/2016 14:53:Mary Beasley RN) Frequency (min): none (11/15/2016 16:00:Mary Broman, RN) Frequency (min): 5-6 (11/15/2016 15:30:Mary Broman, RN) Frequency (min): none (11/15/2016 15:00:Mary Broman, RN) Frequency (min): every 2 mins per pt/mother (11/15/2016 14:53:Marykirsten Beasley, RN) Duration (sec): 90-120 (11/15/2016 15:30:Mary Broman, RN) Quality: Mild/Moderate (11/15/2016 16:00:Mary Broman, RN) Quality: Mild/Moderate (11/15/2016 15:30:Mary Broman, RN) Quality: Mild/Moderate (11/15/2016 15:00:Mary Broman, RN) Pattern: Normal: <= 5 Contractions in 10 Minutes (11/15/2016 16:00:Mary Broman, RN) Pattern: Normal: <= 5 Contractions in 10 Minutes (11/15/2016 15:00:Mary Broman, RN) Resting Tone [place]: Relaxed (11/15/2016 16:00:Mary Broman, RN) Resting Tone [place]: Relaxed (11/15/2016 15:30:Mary Broman, RN) Resting Tone [place]: Relaxed (11/15/2016 15:00:Mary Broman, RN) Dilatation (cm): 1.0 (11/15/2016 15:18:Isabelle Joseph, RN) Effacement (%): 70 (11/15/2016 15:18:Isabelle Joseph RN) Station: -3 (11/15/2016 15:18:Isabelle Joseph, RN) Level of Consciousness: Fully Conscious (11/15/2016 14:53:Marykirsten Beasley, RN) DTR's/Clonus: DTRs 2+; No Clonus (11/15/2016 14:53:Mary Beasley RN) Headache: Denies (11/15/2016 14:53:Mary Beasley RN) Dizziness: No (11/15/2016 14:53:Mary Beasley RN) Blurred Vision: No (11/15/2016 14:53:Mary Beasley RN) Extremity Numbness/Tingling : None (11/15/2016 14:53:Mary Beasley RN) Extremity Movement: Full Range of Motion (11/15/2016 14:53:Mary Beasley RN) Heart Rhythm: Regular (11/15/2016 14:53:Mary Beasley RN) Nailbeds: [place] (11/15/2016 14:53:Mary Beasley RN) Capillary Refill: Less than 3 Seconds (11/15/2016 14:53:Mary Beasley RN) Lower Extremities Edema: None (11/15/2016 14:53:Mary Beasley RN) Lower Extremities Edema Degree: None (11/15/2016 14:53:Mary Beasley RN) Upper Extremities Edema: None (11/15/2016 14:53:Mary Beasley RN) Upper Extremities Edema Degree: None (11/15/2016 14:53:Mary Beasley RN) Facial Edema: None (11/15/2016 14:53:Mary Beasley RN) DVT Risk Age: Age less than 41 years (11/15/2016 14:53:Mary Beasley RN) DVT Risk BMI: BMI<31 (11/15/2016 14:53:Mary Beasley RN) DVT Risk Surgery: None Applicable (11/15/2016 14:53:Mary Beasley RN) DVT Risk Other: Women Only- or (<1 month) (11/15/2016 14:53:Mary Beasley RN) DVT Risk Total: 1 (11/15/2016 14:53:QS system process) DVT Risk Text: Low Risk (<10%) No specific measures, early ambulation (11/15/2016 14:53:QS system process) Respiratory Effort: Unlabored; Regular Rhythm; Equal Expansion (11/15/2016 14:53:Mary Beasley RN) Breath Sounds, Left: Clear and Equal (11/15/2016 14:53:Mary Beasley RN) Breath Sounds, Right: Clear and Equal (11/15/2016 14:53:Mary Beasley RN) Cough Productivity: None (11/15/2016 14:53:Mary Beasley RN) Nausea/Vomiting: Denies (11/15/2016 14:53:Mary Beasley RN) Bowel Sounds: Normoactive; All Quadrants (11/15/2016 14:53:Mary Beasley RN) RUQ Epigastric Pain: Denies (11/15/2016 14:53:Mary Beasley RN) Bowel Patterns: Soft, Formed Stool (11/15/2016 14:53:Mary Beasley RN) Diet Type: Regular diet (11/15/2016 14:53:Mary Beasley RN) Bladder: Nondistended (11/15/2016 14:53:Mary Beasley RN) Frequency of Urination: Yes (11/15/2016 14:53:Mary Beasley RN) Vaginal Bleeding: None (11/15/2016 14:53:Mayr Beasley RN) Vaginal Discharge Amount: Small (11/15/2016 14:53:Mary Beasley RN) Vaginal Discharge Color: Yellow (11/15/2016 14:53:Mary Beasley RN) Vaginal Discharge Odor: Non-Odorous (11/15/2016 14:53:Mary Beasley RN) Vaginal Discharge Character: Thin (11/15/2016 14:53:Mary Beasley RN) Skin Color: Normal for Race (11/15/2016 14:53:Mary Beasley RN) Skin Temperature: Warm (11/15/2016 14:53:Mary Beasley RN) Skin Moisture: Dry (11/15/2016 14:53:Mary Beasley RN) Tru Scale Sensory Perception: No Impairment- Responds to verbal commands. Has no sensory deficit which would limit ability to feel or voice pain or discomfort (11/15/2016 14:53:Mary Beasley RN) Tru Scale Moisture: Rarely Moist- Skin is usually dry. Linen only requires changing at routine intervals (11/15/2016 14:53:Mary Beasley RN) Tru Scale Activity: Walks Frequently- Walks outside the room at least twice a day and inside room at least every 2 hours during the day. (11/15/2016 14:53:Mary Beasley RN) Tru Scale Mobility: No Limitations- Makes major and frequent changes in position without assistance (11/15/2016 14:53:Mary Beasley RN) Tru Scale Nutrition: Excellent- Eats most of every meal. Never refuses a meal. Usually eats a total of 4 or more servings of meat and dairy products. Occasionally eats between meals. Does not require supplementation (11/15/2016 14:53:Mary Beasley RN) Tru Scale Friction and Shear: No Apparent Problem- Moves in bed and in chair independently and has sufficient muscle strength to lift up completely during move. Maintains good position in bed or chair at all times (11/15/2016 14:53:Mayr Beasley RN) Tru Scale Total: 23 (11/15/2016 14:53:QS system process) Tru Scale Risk: No Risk of Pressure Ulcer Noted at this Time (11/15/2016 14:53:QS system process) Family Support: Family supportive (11/15/2016 14:53:Mary Beasley RN) Emotional State: Calm/Relaxed (11/15/2016 14:53:Mary Beasley RN) Call [place] Within Reach: Yes (11/15/2016 14:53:Mary Beasley RN) Side Rails Up: Yes (11/15/2016 14:53:Mary Beasley RN) Bed Wheels Locked: Yes (11/15/2016 14:53:Mary Beasley RN) Arm Bands Present: Yes (11/15/2016 14:53:Mary Beasley RN) Isolation: [place] (11/15/2016 14:53:Mary Beasley RN) Fall Risk History of Falling: (0) No (11/15/2016 14:53:Mary Beasley RN) Fall Risk Secondary Diagnosis: (0) No (11/15/2016 14:53:Mary Beasley RN) Fall Risk Ambulatory Aid: (0) None/Bedrest/Wheelchair/Nurse Assist (11/15/2016 14:53:Mary Beasley RN) Fall Risk IV Therapy: (0) No (11/15/2016 14:53:Mary Beasley RN) Fall Risk Gait: (0) Normal/Bedrest/Immobile (11/15/2016 14:53:Mary Beasley RN) Fall Risk Mental Status: (0) Oriented to Own Ability (11/15/2016 14:53:Mary Beasley RN) Fall Risk Score: 0 (11/15/2016 14:53:QS system process) Fall Risk Score Definition: No Risk: No action required (11/15/2016 14:53:QS system process) Recent Exp Communicable Disease: No (11/15/2016 14:53:Mary Beasley RN) Cough or Fever: No (11/15/2016 14:53:Mary Beasley RN) Foreign Travel Past 10 Days: No (11/15/2016 14:53:Mary Beasley RN) Open Wounds or Sores: No (11/15/2016 14:53:Mary Beasley RN) Prior Antibiotic Resistance Tx: No (11/15/2016 14:53:Mary Beasley RN) Cultures Obtained: Not Applicable (11/15/2016 14:53:Mary Beasley RN) Isolation Initiated: No (11/15/2016 14:53:Mary Beasley RN) Pt/Family Education: Handwashing Hygiene (11/15/2016 14:53:Mary Beasley RN) FHR Baseline Rate (bpm) Baby A: 135 (11/15/2016 16:00:Mary Beasley RN) FHR Baseline Rate (bpm) Baby A: 130 (11/15/2016 15:30:Mary Beasley RN) FHR Baseline Rate (bpm) Baby A: 130 (11/15/2016 15:00:Mary Beasley RN) Variability Baby A: Moderate 6-25 bpm (11/15/2016 16:00:Mary Beasley RN) Variability Baby A: Moderate 6-25 bpm (11/15/2016 15:30:Mary Beasley RN) Variability Baby A: Moderate 6-25 bpm (11/15/2016 15:00:Mary Beasley RN) Accelerations Baby A: 15X15 (11/15/2016 16:00:Mary Beasley RN) Accelerations Baby A: 15X15 (11/15/2016 15:30:Mary Beasley RN) Accelerations Baby A: None (11/15/2016 15:00:Mary Beasley RN) Decelerations Baby A: None (11/15/2016 16:00:Mary Beasley RN) Decelerations Baby A: None (11/15/2016 15:30:Mary Beasley RN) Decelerations Baby A: None (11/15/2016 15:00:Mary Beasley RN)
--- NOTE | 2016-11-17 10:48 | Antepartum Discharge Summary ---
Antepartum DC Datetime Report Generated by CPN: 11/17/2016 10:45 Diet: Regular (11/15/2016 16:10:Mary Beasley RN) Activity: Normal Activity (11/15/2016 16:10:Mary Beasley RN) Instructions Given To: Patient/Mother (11/15/2016 16:10:Mary Beasley RN) Instructions Understood: Patient Verbalized Understanding; Support Person Verbalized Understanding (11/15/2016 16:10:Mary Beasley RN) Referrals: None (11/15/2016 16:10:Mary Beasley RN) Educational Materials- Other: Kick Counts, Term (11/15/2016 16:10:Mary Beasley RN) Discharged AMA: No (11/15/2016 16:10:Mary Beasley RN) Discharge Date/Time: 11/15/2016 16:11 (11/15/2016 16:10:Mary Beasley RN) Discharged To: Home (11/15/2016 16:10:Mary Beasley RN) Discharge Provider Name: Dr. Nolasco (11/15/2016 16:10:Mary Beasley RN) Accompanied By: Mother (11/15/2016 16:10:Mary Beasley RN) Discharge Method: Ambulatory (11/15/2016 16:10:Mary Beasley RN) Condition: Stable (11/15/2016 16:10:Mary Beasley RN) Follow Up With: [facility] (11/15/2016 16:10:Mary Beasley RN) Follow Up On: As Scheduled (11/15/2016 16:10:Mary Beasley RN) Follow Up Phone Number: [facility] - (11/15/2016 16:10:Mary Beasley RN) Contractions: Contractions or cramps become more frequent than 8 in one hour or 4 in 20 minutes; Regular painful contractions every 5 minutes or less for one hour. Time your contractions from the beginning of one to the beginning of the next (11/15/2016 16:10:Mary Beasley RN) Pressure: Pressure in your vagina or lower abdomen that may feel like the baby is pushing down (11/15/2016 16:10:Mary Beasley RN) Gush of Fluid/Blood: Gush of fluid or blood from your vagina (it is normal to have spotting after vaginal exam or intercourse) (11/15/2016 16:10:Mary Beasley RN) Vaginal Discharge: Change in the type or amount of vaginal discharge (11/15/2016 16:10:Mary Beasley RN) Decreased Movement: Your baby is not moving as much as usual- 4 movements in 1 hour after drinking and resting on side (11/15/2016 16:10:Mary Beasley RN) Temperature: Temperature greater than 100.0(F) orally (11/15/2016 16:10:Mary Beasley RN)
== END 2016-11-15 16:11 | disposition home or self-care (01) ==
LOC: LC 14:30
PROVIDERS: ATTEND Specialist
PROC: 4A1HXCZ Monitoring of Products of Conception, Cardiac Rate, External Approach (ICD-10-PCS; principal; 2016-11-15)
DX: O47.1 False labor at or after 37 completed weeks of gestation (principal); Z3A.39 39 weeks gestation of pregnancy
CPT/HCPCS: 59025; 80307; 81005; 84112

== ENCOUNTER 2016-11-19 18:20 | Inpatient (IN) | payer BC, OTHER ==
[2016-11-19] MEDS ORDERED: RINGERS SOLUTION,LACTATED 1,000 ML IV PRN (18:37)
[2016-11-19] MEDS ORDERED: BUPIVACAINE HCL 0.25 % INJ/PF (2.5 MG/1 ML) 30 ML VIAL INFIL ONE (18:41)
[2016-11-19] MEDS ORDERED: EPHEDRINE SULFATE INJ 50 MG/1 ML AMPULE IV PRN (18:41)
[2016-11-19] MEDS ORDERED: FENTANYL/BUPIVACAINE/NS/PF 100 ML EPI PRN (18:41)
[2016-11-19] MEDS ORDERED: FENTANYL/BUPIVACAINE/NS/PF 200 MCG/100 ML RTUINJ EPI ONE (18:58)
[2016-11-19] MEDS ORDERED: EPHEDRINE SULFATE INJ 50 MG/1 ML AMPULE ONE (18:58)
[2016-11-19] MEDS ORDERED: BUPIVACAINE HCL 0.25 % INJ/PF (2.5 MG/1 ML) 30 ML VIAL ONE ×2 (18:58→19:24)
[2016-11-19] MEDS ORDERED: LIDOCAINE 1% INJ-PF (10 MG/ML) 30 ML SDV ONE (19:11)
[2016-11-19] MEDS ORDERED: OXYTOCIN/NORMAL SALINE 20 UNIT/1,000 ML RTUINJ ONE (19:11)
[2016-11-19 19:14] LABS: MEAN CORPUSCULAR HEMOGLOBIN 28.7 pg (27.0-33.4); MEAN CORPUSCULAR HGB CONC 32.5 g/dL (32.0-36.0); MEAN CORPUSCULAR VOLUME 88 fl (80-97); RED BLOOD COUNT 3.85 10^6/uL (3.72-5.28); RED CELL DISTRIBUTION WIDTH 19.5 % (11.5-14.0); WHITE BLOOD COUNT 17.3 10^3/uL (4.0-10.5)
[2016-11-19 19:28] LABS: BASOPHILS % (MANUAL) 0 % (0-2); EOSINOPHILS % (MANUAL) 0 % (0-6); LYMPHOCYTES % (MANUAL) 5 % (13-45); TOTAL CELLS COUNTED 100
[2016-11-19 19:34] LABS: ANISOCYTOSIS 2+; TOXIC GRANULATION SLIGHT
--- NOTE | 2016-11-19 20:00 | L&D Flow Sheet ---
LD Flowsheet Datetime Report Generated by CPN: 11/19/2016 20:00 Datetime: 11/19/2016 19:45 Respirations: 18 (Kelsy Purvis) Monitor Mode: External; Palpation (Kelsy Purvis) Monitor Interventions for UA: [place] Adjusted (Kelsy Purvis) Frequency (min): 1.5-2.5 (Kelsy Purvis) Quality: Moderate to Strong (Kelsy Purvis) Duration (sec): 50-70 (Kelsy Purvis) Resting Tone (Palpate): Relaxed (Kelsy Purvis) Monitor Mode: External US (Kelsy Purvis) Monitor Interventions for FHR: Ultrasound Adjusted (Kelsy Purvis) FHR Baseline Rate : 120 (Kelsy Purvis) FHR Baseline Changes: No Baseline Change (Kelsy Purvis) Variability: Moderate 6-25 bpm (Kelsy Purvis) Accelerations: 15X15 (Kelsy Purvis) Decelerations: None (Kelsy Purvis) Patient Position/Activity: Right Tilt (Kelsy Purvis) LaborFlag: Antepartum (QS system process) Datetime: 11/19/2016 19:40 Patient Position/Activity: Right Tilt (Kelsy Purvis) Datetime: 11/19/2016 19:38 Dilatation (cm): 8.0 (Kelsy Purvis) Effacement (%): 90 (Kelsy Purvis) Station: 0 (Kelsy Purvis) Exam by: A Purvis Rn (Kelsy Purvis) Datetime: 11/19/2016 19:36 Pulse: 90 (QS system process) SpO2 (%): 99 (QS system process) I/O Interventions: Stewart Cath Inserted (Annotations: 14fr ) (Kelsy Purvis) LaborFlag: Antepartum (QS system process) Datetime: 11/19/2016 19:35 NBP Sys/Landy/Mean (mmHg): 131 (QS system process) : 74 (QS system process) : 96 (QS system process) Pulse: 71 (QS system process) LaborFlag: Antepartum (QS system process) Datetime: 11/19/2016 19:33 NBP Sys/Landy/Mean (mmHg): 130 (QS system process) : 61 (QS system process) : 88 (QS system process) Pulse: 71 (QS system process) LaborFlag: Antepartum (QS system process) Datetime: 11/19/2016 19:32 NBP Sys/Landy/Mean (mmHg): 126 (QS system process) : 74 (QS system process) : 93 (QS system process) Pulse: 110 (QS system process) LaborFlag: Antepartum (QS system process) Datetime: 11/19/2016 19:31 NBP Sys/Landy/Mean (mmHg): 135 (QS system process) : 68 (QS system process) : 96 (QS system process) Pulse: 88 (QS system process) Pulse: 87 (QS system process) SpO2 (%): 100 (QS system process) LaborFlag: Antepartum (QS system process) Datetime: 11/19/2016 19:30 NBP Sys/Landy/Mean (mmHg): 142 (QS system process) : 75 (QS system process) : 102 (QS system process) Pulse: 68 (QS system process) LaborFlag: Antepartum (QS system process) Datetime: 11/19/2016 19:29 NBP Sys/Landy/Mean (mmHg): 123 (QS system process) : 69 (QS system process) : 87 (QS system process) Pulse: 80 (QS system process) LaborFlag: Antepartum (QS system process) Datetime: 11/19/2016 19:27 NBP Sys/Landy/Mean (mmHg): 136 (QS system process) : 80 (QS system process) : 102 (QS system process) Pulse: 77 (QS system process) SpO2 (%): 90 (QS system process) LaborFlag: Antepartum (QS system process) Datetime: 11/19/2016 19:26 NBP Sys/Landy/Mean (mmHg): 137 (QS system process) : 79 (QS system process) : 102 (QS system process) Pulse: 73 (QS system process) Pulse: 72 (QS system process) SpO2 (%): 96 (QS system process) LaborFlag: Antepartum (QS system process) Datetime: 11/19/2016 19:25 NBP Sys/Landy/Mean (mmHg): 130 (QS system process) : 77 (QS system process) : 99 (QS system process) Pulse: 67 (QS system process) Anesthesia Plans: Epidural (Kelsy Purvis) Epidural Positioning: Sitting (Kelsy Purvis) Epidural Procedure: Cath Placed (Kelsy Purvis) LaborFlag: Antepartum (QS system process) Datetime: 11/19/2016 19:24 Anesthesia Plans: Epidural (Kelsy Purvis) Epidural Positioning: Sitting (Kelsy Purvis) Epidural Procedure: Test Dose (Kelsy Purvis) Datetime: 11/19/2016 19:22 NBP Sys/Landy/Mean (mmHg): 130 (QS system process) : 80 (QS system process) : 97 (QS system process) Pulse: 76 (QS system process) LaborFlag: Antepartum (QS system process) Datetime: 11/19/2016 19:21 Pulse: 67 (QS system process) SpO2 (%): 100 (QS system process) LaborFlag: Antepartum (QS system process) Datetime: 11/19/2016 19:20 Pulse: 91 (QS system process) SpO2 (%): 94 (QS system process) LaborFlag: Antepartum (QS system process) Datetime: 11/19/2016 19:19 NBP Sys/Landy/Mean (mmHg): 138 (QS system process) : 90 (QS system process) : 109 (QS system process) Pulse: 90 (QS system process) LaborFlag: Antepartum (QS system process) Datetime: 11/19/2016 19:16 Pulse: 75 (QS system process) SpO2 (%): 100 (QS system process) Anesthesia Plans: Epidural (Kelsy Purvis) Epidural Positioning: Sitting (Kelsy Purvis) Anesthesia Comments: Dr Gustafson at the bedside (Kelsy Purvis) LaborFlag: Antepartum (QS system process) Datetime: 11/19/2016 19:13 Procedure Type: epidural (Kelsy Purvis) Procedure Verify: Correct Patient Identity; Correct Side and Site are Marked; Accurate Procedure Consent Form; Agreement on Procedure to be Done; Correct Patient Position; Relevant Images and Results are Properly Labeled and Displayed; Safety Precautions Based on Patient History or Medication Use (Kelsy Purvis) Anesthesia Plans: Epidural (Kelsy Purvis) Epidural Positioning: Sitting (Kelsy Purvis) Datetime: 11/19/2016 19:05 Procedure Type: epidural (Kelsy Purvis) Procedure Verify: Correct Patient Identity; Correct Side and Site are Marked; Accurate Procedure Consent Form; Agreement on Procedure to be Done; Correct Patient Position; Relevant Images and Results are Properly Labeled and Displayed; Safety Precautions Based on Patient History or Medication Use (Kelsy Purvis) Datetime: 11/19/2016 18:54 Procedure Type: Epidural (Carolyn Corbin RN) Procedure Verify: Correct Patient Identity; Correct Side and Site are Marked; Accurate Procedure Consent Form; Agreement on Procedure to be Done; Addressed Need to Administer Antibiotics or Fluids for Irrigation; Safety Precautions Based on Patient History or Medication Use (Carolyn Corbin RN) Anesthesia Plans: Epidural (Carolyn Corbin RN) Anesthesia Comments: Dr Gustafson notified of epidural request (Carolyn Corbin RN) Datetime: 11/19/2016 18:44 Communication Comments: Dr Solorio notified of SVE, FHR, UC pattern, requesting epidural. Orders received to admit, may have epidural (Carolyn Corbin RN) Datetime: 11/19/2016 18:42 NBP Sys/Landy/Mean (mmHg): 113 (QS system process) : 59 (QS system process) : 82 (QS system process) Pulse: 62 (QS system process) LaborFlag: Antepartum (QS system process) Datetime: 11/19/2016 18:40 Monitor Interventions for UA: [place] Adjusted (Sarah Schmitz RN) Monitor Interventions for FHR: Ultrasound Adjusted (Sarah Schmitz RN) Datetime: 11/19/2016 18:38 Frequency (min): q2-3 (Sarah Schmitz RN) Monitor Mode: External US (Sarah Schmitz RN) Pain Scale: 5 (Sarah Schmitz RN) Pain Presence: Intermittent (Sarah Schmitz RN) Pain Type: Contraction (Sarah Schmitz RN) Pain Location: Abdomen; Back (Sarah Schmitz RN) Pain Goal: 0 (Sarah Schmitz RN) Pain Relief Measures: Comfort Measures (Sarah Schmitz RN) Pain Coping: Breathing Through Contractions (Sarah Schmitz RN) Dilatation (cm): 5.0 (Sarah Schmitz RN) Effacement (%): 90 (Sarah Schmitz RN) Vaginal Bleeding: Normal Show (Sarah Schmitz RN) Level of Consciousness: Fully Conscious (Sarah Schmitz RN) Headache: Denies (Sarah Schmitz RN) Breath Sounds, Left: Clear and Equal (Sarah Schmitz RN) Breath Sounds, Right: Clear and Equal (Sarah Schmitz RN) Nausea/Vomiting: Denies (Sarah Schmitz RN) RUQ Epigastric Pain: Denies (Sarah Schmitz RN) LaborFlag: Antepartum (QS system process) Datetime: 11/19/2016 18:37 Dilatation (cm): 5.0 (Kymberly Martinez, RN) Effacement (%): 90 (Kymberly Martinez, RN) Station: -1 (Kymberly Martinez, RN) Exam by: Kelsy Schmitz, RN (Kymberly Martinez, RN) Datetime: 11/19/2016 18:31 Stage of : Antepartum (Kymberly Garciaon, RN) Comments: Monitors applied, explained to pt. (Kymberly Martinez, RN) Datetime: 11/15/2016 15:51 LaborFlag: Antepartum (QS system process) Datetime: 11/15/2016 15:20 LaborFlag: Antepartum (QS system process) Datetime: 11/15/2016 14:53 LaborFlag: Antepartum (QS system process) Datetime: 11/15/2016 14:52 LaborFlag: Antepartum (QS system process) Datetime: 11/12/2016 18:48 LaborFlag: Antepartum (QS system process) Datetime: 11/12/2016 18:15 Temperature (C): 37.1 (QS system process) LaborFlag: Antepartum (QS system process) Datetime: 11/12/2016 16:30 LaborFlag: Antepartum (QS system process) Datetime: 11/12/2016 16:19 LaborFlag: Antepartum (QS system process) Datetime: 11/03/2016 15:15 LaborFlag: Antepartum (QS system process) Datetime: 11/03/2016 15:13 Temperature (C): 36.9 (QS system process) LaborFlag: Antepartum (QS system process) Datetime: 11/03/2016 15:03 LaborFlag: Antepartum (QS system process) Datetime: 10/28/2016 15:30 Temperature (C): 36.6 (QS system process) LaborFlag: Antepartum (QS system process) Datetime: 10/28/2016 14:35 LaborFlag: Antepartum (QS system process)
[2016-11-19 20:18] LABS: APPEARANCE,URINE CLOUDY; BILIRUBIN,URINE NEGATIVE (NEGATIVE); GLUCOSE, URINE NEGATIVE (NEGATIVE); KETONES,URINE 80 mg/dL (NEGATIVE); LEUKOCYTE ESTERASE,URINE NEGATIVE (NEGATIVE); NITRITE,URINE NEGATIVE (NEGATIVE); PROTEIN,URINE NEGATIVE (NEGATIVE); URINE SPECIFIC GRAVITY 1.013; UROBILINOGEN,URINE NEGATIVE mg/dL (<2.0)
[2016-11-19 20:34] LABS: URINE BARBITURATES SCREEN NEGATIVE; URINE METHADONE SCREEN NEGATIVE; URINE OPIATES LOW NEGATIVE; URINE PHENCYCLIDINE SCREEN NEGATIVE
[2016-11-19] MEDS ORDERED: PROMETHAZINE HCL INJ 25 MG/1 ML VIAL IV PRN (22:06)
[2016-11-19] MEDS ORDERED: ACETAMINOPHEN 650 MG SUPP.RECT PR PRN (22:06)
[2016-11-19] MEDS ORDERED: DIPH/PERTUSS(ACELL)/TETANUS VAC/PF 0.5 ML SYR (>=10YO) IM PRN (22:06)
[2016-11-19] MEDS ORDERED: PROMETHAZINE HCL 25 MG TABLET PO PRN (22:06)
[2016-11-19] MEDS ORDERED: ACETAMINOPHEN WITH CODEINE #3 TABLET PO PRN (22:06)
[2016-11-19] MEDS ORDERED: DIPHENHYDRAMINE HCL 25 MG CAPSULE PO PRN (22:06)
[2016-11-19] MEDS ORDERED: PROMETHAZINE HCL 25 MG SUPP.RECT PR PRN (22:06)
[2016-11-19] MEDS ORDERED: GLYCERIN/WITCH HAZEL LEAF 1 EACH MED..PAD TP PRN (22:06)
[2016-11-19] MEDS ORDERED: BENZOCAINE/MENTHOL AEROSOL SPRAY 56 ML TOP PRN (22:06)
[2016-11-19] MEDS ORDERED: OXYTOCIN/NORMAL SALINE 1,000 ML IV PRN (22:06)
[2016-11-19] MEDS ORDERED: PSEUDOEPHEDRINE HCL 30 MG TABLET PO PRN (22:06)
[2016-11-19] MEDS ORDERED: DIBUCAINE 1% OINTMENT 28 GM TP PRN (22:06)
[2016-11-19] MEDS ORDERED: MAGNESIUM HYDROXIDE SUSP 30 ML UDCUP PO PRN (22:06)
[2016-11-19] MEDS ORDERED: ZOLPIDEM TARTRATE 5 MG TABLET PO PRN (22:06)
[2016-11-19] MEDS ORDERED: NA PHOS,M-B/NA PHOS,DI-BA (ADULT) 133 ML ENEMA PR PRN (22:06)
[2016-11-19] MEDS ORDERED: MEASLES,MUMPS&RUBELLA VACC/PF 0.5 ML VIAL SUBCUT PRN (22:06)
--- NOTE | 2016-11-19 22:58 | Delivery Summary ---
Del Sum A-C Datetime Report Generated by CPN: 11/19/2016 22:57 DELIVERY PERSONNEL DELIVERY PERSONNEL: [phone] Delivery Doctor:: Amy Solorio MD Labor and Delivery Nurse:: Kelsy Purvis RNgum machine operator Nurse:: BRUNO Mustafa/SOCK LINING EXAMINER: Isabelle Griffith CNA MATERNAL INFORMATION Delivery Anesthesia: Epidural Medications After Delivery: Pitocin Bolus-Please Comment Meds After Delivery Comment: Pitocin 20 units/100 ml NS bolus following placenta delivery Estimated Blood Loss (ml): 125 Maternal Complications: None LABOR SUMMARY EDC: 11/21/2016 00:00 No. Babies in Womb: 1 Attempted: No Labor Anesthesia: Epidural LABOR INFORMATION Reason for Induction: Not Applicable Onset of Labor: 11/19/2016 18:37 Complete Dilatation: 11/19/2016 20:59 Oxytocin: N/A Group B Beta Strep: Negative Antibiotics # of Doses: 0 Antibiotics Time of Last Dose: n/a Steroids Given: None Reason Steroids Not Administered: Not Applicable MEMBRANES Membranes Rupture Method: Artificial Rupture of Membranes: 11/19/2016 20:43 Length of Rupture (hr): 0.88 Amniotic Fluid Color: Clear Amniotic Fluid Amount: Moderate Amniotic Fluid Odor: Normal STAGES OF LABOR Stage 1 hr: 2 Stage 1 min: 22 Stage 2 hr: 0 Stage 2 min: 37 Stage 3 hr: 0 Stage 3 min: 8 Total Time in Labor hr: 3 Total Time in Labor min: 7 VAGINAL DELIVERY Episiotomy: None Laceration Extension: Second Degree Laceration Type: Perineal; Vaginal Laceration Repair: Yes Laceration Repair Note: repair with 3-0 chromic suture in usual fashion. Good approximation. Sponge Count Correct: N/A Sharps Count Correct: N/A CSECTION DELIVERY Primary Indication: N/A Secondary Indication: N/A CSection Incidence: N/A Labor: N/A Elective: N/A CSection Incision: N/A BABY A INFORMATION Infant Delivery Date/Time: 11/19/2016 21:36 Method of Delivery: Vaginal Born in Route : No : N/A Forceps: N/A Vacuum Extraction: N/A Shoulder Dystocia : No PRESENTATION/POSITION BABY A Presentation: Cephalic Cephalic Presentation: Vertex Vertex Position: Right Occipital Anterior Breech Presentation: N/A PLACENTA INFORMATION BABY A Placenta Delivery Time : 11/19/2016 21:44 Placenta Method of Delivery: Spontaneous Placenta Status: Delivered SCORES BABY A Heart Rate 1 min: >100 bpm Resp Effort 1 min: Good Cry Reflex Irritability 1 min: Cough or Sneeze or Pulls Away Muscle Tone 1 min: Active Motion Color 1 min: Body [place], Extremities Blue SCORE 1 MIN: 9 Heart Rate 5 min: >100 bpm Resp Effort 5 min: Good Cry Reflex Irritability 5 min: Cough or Sneeze or Pulls Away Muscle Tone 5 min: Active Motion Color 5 min: Body [place], Extremities Blue SCORE 5 MIN: 9 INFORMATION BABY A Gestational Age at Delivery: 39.5 Gestational Status: Full Term- 39- 40.6 Weeks Outcome : Liveborn Infant Condition : Stable Infant Sex: Female IDENTIFICATION BABY A Verification Date/Time: 11/19/2016 21:50 ID Band Number: [id number] Mother's Name Verified: Yes Infant RN Verifying Infant: Maricruz AlonzoBRUNO Additional Verifying Personnel: Kelsy Hermosillo RN WEIGHT/LENGTH BABY A Birthweight (gm): 3390 Infant Weight (lb): 7 Infant Weight (oz): 8 Length (in): 21.00 Infant Length (cm): 53.34 CORD INFORMATION BABY A No. Cord Vessels: 3 Nuchal Cord : N/A Cord Blood Taken: Yes-For Storage (Mom's Blood type +) Suction: None ASSESSMENT BABY A Infant Complications: None Physical Findings at Delivery: Within Normal Limits Infant Respirations: Appears Normal Skin to Skin: Yes Skin to Skin Time (min): 30 Procedures Analyst/ALS Called : No Infant Care By: Maricruz Alonzo RN Transferred To: Remains with Mother SIGNATURES Signature: with User ID: [email or web address]
[2016-11-20] MEDS: IBUPROFEN 800 MG TABLET PO SCH ×3 (05:48→21:18)
[2016-11-20] MEDS: ACETAMINOPHEN WITH CODEINE #3 TABLET PO PRN ×2 (07:06→16:24)
[2016-11-20 07:33] LABS: HEMATOCRIT 26.5 % (36.0-47.0); HGB HCT DIFFERENCE 0.5; MEAN CORPUSCULAR HEMOGLOBIN 29.8 pg (27.0-33.4); MEAN CORPUSCULAR HGB CONC 33.9 g/dL (32.0-36.0); MEAN CORPUSCULAR VOLUME 88 fl (80-97); RED BLOOD COUNT 3.02 10^6/uL (3.72-5.28); RED CELL DISTRIBUTION WIDTH 19.9 % (11.5-14.0); WHITE BLOOD COUNT 16.1 10^3/uL (4.0-10.5)
[2016-11-20] MEDS: FAMOTIDINE 20 MG TABLET PO SCH ×2 (09:17→21:17)
[2016-11-20] MEDS: DOCUSATE SODIUM 100 MG CAPSULE PO SCH ×2 (09:17→17:23)
[2016-11-20] MEDS: SENNOSIDES/DOCUSATE 8.6-50 MG 1 EACH TABLET PO SCH (09:17)
[2016-11-20] MEDS: FERROUS SULFATE 325 MG TABLET PO SCH ×2 (09:17→17:23)
[2016-11-20] MEDS: PRENATAL VITAMIN W-O CA NO5/FE FUMARATE/FA CAPSULE PO SCH (09:17)
--- NOTE | 2016-11-20 11:01 | PDOC PROGRESS REPORT ---
Subjective-OB Subjective: Post Delivery Day: 21 year old. Denies any needs at this time. Pt doing well, no concerns. She reports light bleeding, regular diet and voiding well. Physical Exam (OB) Vital Signs: Temp Pulse Resp BP Pulse Ox 98.8 F 68 15 114/61 97 11/20/16 07:45 11/20/16 07:45 11/20/16 07:45 11/20/16 07:45 11/20/16 07:45 Intake & Output 11/19/16 11/20/16 11/21/16 06:59 06:59 06:59 Intake Total 240 Balance 240 Weight 57.2 kg - Lochia Lochia Amount: Small 10-25 ml Lochia Color: Rubra/Red - Abdomen Description: Tender, Soft, Round Hernia Present: No Fundal Description: Firm, Midline Fundal Height: u/u - u/2 Objective-Diagnostic Laboratory: 11/20/16 07:24 11/19/16 11/19/16 11/19/16 18:55 18:55 20:05 WBC 17.3 H RBC 3.85 Hgb 11.0 L Hct 34.0 L MCV 88 MCH 28.7 MCHC 32.5 RDW 19.5 H Plt Count 259 Seg Neutrophils % Not Reportable Lymphocytes % Not Reportable Monocytes % Not Reportable Eosinophils % Not Reportable Basophils % Not Reportable Absolute Neutrophils Not Reportable Absolute Lymphocytes Not Reportable Absolute Monocytes Not Reportable Absolute Eosinophils Not Reportable Absolute Basophils Not Reportable Urine Color YELLOW Urine Appearance CLOUDY Urine pH 8.0 Ur Specific [place] 1.013 Urine Protein NEGATIVE Urine Glucose (UA) NEGATIVE Urine Ketones 80 H Urine Blood NEGATIVE Urine Nitrite NEGATIVE Ur Leukocyte Esterase NEGATIVE Blood Type A POSITIVE Antibody Screen NEGATIVE 11/20/16 07:24 WBC 16.1 H RBC 3.02 L Hgb 9.0 L Hct 26.5 L MCV 88 MCH 29.8 MCHC 33.9 RDW 19.9 H Plt Count 218 Seg Neutrophils % Lymphocytes % Monocytes % Eosinophils % Basophils % Absolute Neutrophils Absolute Lymphocytes Absolute Monocytes Absolute Eosinophils Absolute Basophils Urine Color Urine Appearance Urine pH Ur Specific [place] Urine Protein Urine Glucose (UA) Urine Ketones Urine Blood Urine Nitrite Ur Leukocyte Esterase Blood Type Antibody Screen Assessment and Plan(PN) - Assessment and Plan (1) Vaginal delivery Is this a current diagnosis for this admission?: Yes - Time Spent with Patient Time with patient: Less than 15 minutes Medications reviewed and adjusted accordingly: Yes - Disposition Anticipated Discharge: Home Within: within 24 hours
[2016-11-20] MEDS ORDERED: ONDANSETRON 4 MG TAB.RAPDIS PO PRN (11:02)
--- NOTE | 2016-11-20 23:40 | L&D Discharge Summary ---
OB Discharge Summary Datetime Report Generated by CPN: 11/20/2016 23:40 DISCHARGE DIAGNOSIS Diagnosis/Symptoms: False Labor Gestation: 39.5 Number of Babies in Womb: 1 Parity: 0 DIET/ACTIVITY/RESTRICTIONS Diet: Regular Activity: Normal Activity TEACHING/INSTRUCTIONS/REFERRALS Instructions Given To: Patient/Mother Instructions Understood: Patient Verbalized Understanding; Support Person Verbalized Understanding Referrals: None Educational Materials- Other: Kick Counts, Term DISCHARGE INFORMATION Discharged AMA: No Discharge Date/Time: 11/15/2016 16:11 Discharged To: Home Discharge Provider Name: Dr. Nolasco Accompanied By: Mother Discharge Method: Ambulatory Condition: Stable FOLLOW UP INFORMATION Follow Up With: [facility] Follow Up On: As Scheduled Follow Up Phone Number: [facility] - Comments: Pt given a prescription for Diflucan and instructed that she can only take it one time during . Pt informed that she can take Monostat if the Diflucan does not work. Pt also informed that she can take Zyrtec to help with the irritation. Pt verbalized understanding. GENERAL INSTR-CALL PROVIDER IF: Contractions: Contractions or cramps become more frequent than 8 in one hour or 4 in 20 minutes; Regular painful contractions every 5 minutes or less for one hour. Time your contractions from the beginning of one to the beginning of the next Pressure: Pressure in your vagina or lower abdomen that may feel like the baby is pushing down Gush of Fluid/Blood: Gush of fluid or blood from your vagina (it is normal to have spotting after vaginal exam or intercourse) Vaginal Discharge: Change in the type or amount of vaginal discharge Decreased Movement: Your baby is not moving as much as usual- 4 movements in 1 hour after drinking and resting on side Temperature: Temperature greater than 100.0(F) orally
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
[2016-11-21] MEDS: IBUPROFEN 800 MG TABLET PO SCH ×2 (05:49→13:34)
[2016-11-21] MEDS: ACETAMINOPHEN WITH CODEINE #3 TABLET PO PRN (08:04)
--- NOTE | 2016-11-21 08:49 | PDOC DISCHARGE SUMMARY ---
Final Diagnosis Discharge Date: 11/21/16 Discharge Data - Discharge Medication Home Medications: Ca Carbonate/Vitamin D3/Vit K [Calcium + D Soft Chewable Tab] 1 each PO DAILY Pnv No.122/Iron/Folic Acid [ Multi Tablet] 1 tab PO DAILY 10/28/16 Acetaminophen with Codeine [Tylenol #3 Tablet] 2 each PO Q4HP PRN #14 tablet Docusate Sodium [Colace 100 mg Capsule] 100 mg PO BID #60 capsule 11/21/16 Ferrous Sulfate [Feosol 325 mg Tablet] 325 mg PO BID #60 tablet 11/21/16 Ibuprofen [Motrin 800 mg Tablet] 800 mg PO Q8 #60 tablet 11/21/16 Gestational Age: 39.5 Reason(s) for Admission: Onset of Labor Procedures: NST Intrapartum Procedure(s): Spontaneous Vaginal Delivery Complication(s): Laceration-Vaginal Laceration-Degree: 2nd - Data Baby 1 Female at 1 minute: 9 at 5 minutes: 9 Weight: 3390 kg Home with Mother: Yes Complications: No - Diagnosis Test Laboratory: Temp Pulse Resp BP Pulse Ox 98.8 F 61 18 120/65 99 11/21/16 08:21 11/21/16 08:21 11/21/16 08:21 11/21/16 08:21 11/21/16 08:21 11/19/16 11/19/16 11/20/16 18:55 20:05 07:24 RBC 3.85 3.02 L Hgb 11.0 L 9.0 L Hct 34.0 L 26.5 L Urine Opiates Screen NEGATIVE - Discharge information/Instructions Discharge Activity: Activity As Tolerated, No Lifting Over 10 Pounds, Pelvic Rest, No tub bath Discharge Diet: Regular Disposition: HOME, SELF-CARE Follow up with: [facility] in: 4, Weeks
[2016-11-21 09:48] VITALS: BP 113/64
[2016-11-21] MEDS: SENNOSIDES/DOCUSATE 8.6-50 MG 1 EACH TABLET PO SCH (10:24)
[2016-11-21] MEDS: FERROUS SULFATE 325 MG TABLET PO SCH (10:24)
[2016-11-21] MEDS: PRENATAL VITAMIN W-O CA NO5/FE FUMARATE/FA CAPSULE PO SCH (10:25)
[2016-11-21] MEDS: DOCUSATE SODIUM 100 MG CAPSULE PO SCH (10:25)
[2016-11-21] MEDS: FAMOTIDINE 20 MG TABLET PO SCH (10:25)
== END 2016-11-21 14:52 | disposition home or self-care (01) | DRG 775 ==
LOC: LC 18:20 → LR 18:44 → EEVIPCON 18:44 → 2N 23:56
PROVIDERS: ADMIT Obstetrics & Gynecology; ATTEND Obstetrics & Gynecology
PROC: 10E0XZZ Delivery of Products of Conception, External Approach (ICD-10-PCS; principal; 2016-11-19)
PROC: 0KQM0ZZ Repair Perineum Muscle, Open Approach (ICD-10-PCS; 2016-11-19)
PROC: 10907ZC Drainage of Amniotic Fluid, Therapeutic from Products of Conception, Via Natural or Artificial Opening (ICD-10-PCS; 2016-11-19)
PROC: 4A1HXCZ Monitoring of Products of Conception, Cardiac Rate, External Approach (ICD-10-PCS; 2016-11-19)
DX: O70.1 Second degree perineal laceration during delivery (principal); Z37.0 Single live birth; Z3A.39 39 weeks gestation of pregnancy
CPT/HCPCS: 36415; 80307; 81005; 85025; 85027; 86592; 86850; 86900; 86901; J2590; J3490; S0119

== ENCOUNTER 2019-01-24 12:25 | Inpatient (IN) | payer BC, OTHER ==
[2019-01-24] MEDS ORDERED: OXYTOCIN/NORMAL SALINE 20 UNIT/1,000 ML RTUINJ ONE (13:02)
[2019-01-24] MEDS ORDERED: MISOPROSTOL 0.2 MG TABLET ONE (13:02)
[2019-01-24] MEDS ORDERED: LIDOCAINE 1% INJ-PF (10 MG/ML) 30 ML SDV ONE (13:02)
[2019-01-24] MEDS ORDERED: OXYTOCIN 10 UNIT/ML VIAL ONE (13:02)
--- NOTE | 2019-01-24 13:30 | Admission Physical ---
Datetime Report Generated by CPN: 01/24/2019 13:30 CURRENT ADMISSION Hx Assessment: The History has been Reviewed and is Current Chief Complaint: Uterine Contractions Admit Impression : Term, Intrauterine Admit Plan: Admit to Unit; Initiate Labor Protocol ALLERGIES Medication Allergies: No Medication Allergies: No Known Allergies (11/19/2016) Latex: No Latex Allergies Food Allergies: none Environmental Allergies: none OBSTETRICAL HISTORY EDC: 01/21/2019 00:00 : 2 Para: 1 Term: 1 Livin Gestational Diabetes: No Rh Sensitization: No Incompetent Cervix: No YULIYA: No Infertility: No ART Treatment: No Uterine Anomaly: No IUGR: No Hx Previous C/S: No Macrosomia: No Hx Loss/Stillborn: No PIH: No Hx : No Placenta Previa/Abruption: No Depression/PP Depression: Yes PTL/PROM: No Post Hemorrhage: No Current Procedures: Ultrasound; NST Obstetrical History Comments: G1- vaginal 2016 G2- current SEE RECORDS Alcohol: No Marijuana : No Cocaine: No Other Illicit Drugs: No Cigarettes: Never Smoker. [id number] MEDICAL HISTORY Diabetes: No Blood Transfusion: No Pulmonary Disease (Asthma, TB): No Breast Disease: No Hypertension: No Journalist Surgery: No Heart Disease: No Hosp/Surgery: No Autoimmune Disorder: No Anesthetic Complications: No Kidney Disease: No Abnormal Pap Smear: No Neuro/Epilepsy: No Psychiatric Disorders: No Other Medical Diseases: Yes Hepatitis/Liver Disease: No Significant Family History: No Varicosities/Phlebitis: No Trauma/Violence : No Thyroid Dysfunction: No Medical History Comments: POTS INFECTIOUS HISTORY Gonorrhea: No Genital Herpes: No Chlamydia: No Tuberculosis: No Syphilis: No Hepatitis: No HIV/AIDS Exposure: No Rash or Viral Illness: No HPV: No PHYSICAL EXAM General: Normal HEENT: Normal Neurologic: Normal Thyroid: Deferred Heart: Normal Lungs: Normal Breast: Deferred Back: Normal Abdomen: Normal Genitourinary Exam: Normal Extremities: Normal DTRs: Normal Pelvic Type: Adequate Physical Exam Comments: GBS neg TRINH FETUS A EGA: 40.3 Monitoring: External US Variability: Moderate 6-25bpm Decelerations: None Admit Comment: Admitted to LD in active labor, 8/vtx/0, breathing with uc's Cat1, epidural if she has time PLANS FOR LABOR AND DELIVERY Labor and Delivery: Placenta Request Pain Management: Epidural Feeding Preference: Both Benefit of Breast Feed Discussed: Yes Circumcision: N/A INFORMED CONSENT Assignment: Aaron Kirkpatrick MD Signature: with User ID: [email or web address] : with User ID: [email or web address]
[2019-01-24 13:31] LABS: ABSOLUTE LYMPHOCYTES (AUTO) 1.9 10^3/uL (0.5-4.7); ABSOLUTE MONOCYTES (AUTO) 0.9 10^3/uL (0.1-1.4); ABSOLUTE NEUT (AUTO) 8.2 10^3/uL (1.7-8.2); BASOPHILS % (AUTO) 0.3 % (0-2); EOSINOPHILS % (AUTO) 0.2 % (0-6); HEMATOCRIT 32.3 % (36.0-47.0); HEMOGLOBIN 10.8 g/dL (12.0-15.5); LYMPHOCYTES % (AUTO) 17.1 % (13-45); MEAN CORPUSCULAR HGB CONC 33.6 g/dL (32.0-36.0); MEAN CORPUSCULAR VOLUME 89 fl (80-97); MONOCYTES % (AUTO) 8.2 % (3-13); PLATELET COUNT 328 10^3/uL (150-450); RED BLOOD COUNT 3.61 10^6/uL (3.72-5.28); RED CELL DISTRIBUTION WIDTH 13.9 % (11.5-14.0); SEGMENTED NEUTROPHILS % (AUTO) 74.2 % (42-78); TOTAL CELLS COUNTED % (AUTO) 100 %; WHITE BLOOD COUNT 11.1 10^3/uL (4.0-10.5)
[2019-01-24] MEDS ORDERED: OXYCODONE-ACETAMINOPHEN 5-325 MG TABLET ONE (14:00)
[2019-01-24] MEDS ORDERED: IBUPROFEN 800 MG TABLET ONE (14:00)
[2019-01-24] MEDS ORDERED: PSEUDOEPHEDRINE HCL 30 MG TABLET PO PRN (14:12)
[2019-01-24] MEDS ORDERED: DIBUCAINE 1% OINTMENT 56 GM TP PRN ×2 (14:12→15:02)
[2019-01-24] MEDS ORDERED: ACETAMINOPHEN 650 MG SUPP.RECT PR PRN (14:12)
[2019-01-24] MEDS ORDERED: MISOPROSTOL 0.2 MG TABLET PR PRN ×2 (14:12→14:40)
[2019-01-24] MEDS ORDERED: NA PHOS,M-B/NA PHOS,DI-BA (ADULT) 133 ML ENEMA PR PRN (14:12)
[2019-01-24] MEDS ORDERED: MEASLES,MUMPS&RUBELLA VACC/PF 0.5 ML VIAL SUBCUT PRN ×2 (14:12→15:02)
[2019-01-24] MEDS ORDERED: PROMETHAZINE HCL 25 MG TABLET PO PRN (14:12)
[2019-01-24] MEDS ORDERED: GLYCERIN/WITCH HAZEL LEAF 1 EACH MED..WIPE TP PRN (14:12)
[2019-01-24] MEDS ORDERED: PROMETHAZINE HCL INJ 25 MG/1 ML VIAL IV PRN (14:12)
[2019-01-24] MEDS ORDERED: OXYTOCIN/NORMAL SALINE 20 UNIT/1,000 ML RTUINJ IV PRN (14:12)
[2019-01-24] MEDS ORDERED: PROMETHAZINE HCL 25 MG SUPP.RECT PR PRN (14:12)
[2019-01-24] MEDS ORDERED: DIPH/PERTUSS(ACELL)/TETANUS VAC/PF 0.5 ML SYR (>=10YO) IM PRN ×2 (14:12→15:02)
[2019-01-24] MEDS ORDERED: BENZOCAINE/MENTHOL AEROSOL SPRAY 56 ML TOP PRN ×2 (14:12→15:02)
[2019-01-24] MEDS ORDERED: ACETAMINOPHEN WITH CODEINE #3 TABLET PO PRN ×3 (14:12→15:02)
[2019-01-24] MEDS ORDERED: DIPHENHYDRAMINE HCL 25 MG CAPSULE PO PRN (14:12)
[2019-01-24] MEDS ORDERED: MAGNESIUM HYDROXIDE SUSP 30 ML UDCUP PO PRN (14:12)
[2019-01-24] MEDS ORDERED: METHYLERGONOVINE MALEATE INJ/PF 0.2 MG/1 ML AMPULE ONE (14:41)
[2019-01-24] MEDS ORDERED: RINGERS SOLUTION,LACTATED 1,000 ML IV PRN (15:02)
[2019-01-24] MEDS ORDERED: ZOLPIDEM TARTRATE 5 MG TABLET PO PRN (15:02)
[2019-01-24] MEDS ORDERED: RINGERS SOLUTION,LACTATED 1,000 ML IV ONE (15:02)
[2019-01-24] MEDS ORDERED: OXYTOCIN/NORMAL SALINE 1,000 ML IV PRN (15:02)
[2019-01-24] MEDS ORDERED: METHYLERGONOVINE MALEATE INJ/PF 0.2 MG/1 ML AMPULE IM PRN (15:02)
[2019-01-24] MEDS ORDERED: ONDANSETRON HCL INJ/PF 4 MG/2 ML SDV ONE (16:10)
[2019-01-24] MEDS ORDERED: DOCUSATE SODIUM 100 MG CAPSULE PO SCH (18:00)
[2019-01-24] MEDS ORDERED: FERROUS SULFATE 325 MG TABLET PO SCH (18:00)
[2019-01-24 18:14] LABS: HEMATOCRIT 31.8 % (36.0-47.0); HEMOGLOBIN 10.7 g/dL (12.0-15.5); MEAN CORPUSCULAR HEMOGLOBIN 30.3 pg (27.0-33.4); MEAN CORPUSCULAR HGB CONC 33.6 g/dL (32.0-36.0); MEAN CORPUSCULAR VOLUME 90 fl (80-97); PLATELET COUNT 304 10^3/uL (150-450); RED BLOOD COUNT 3.54 10^6/uL (3.72-5.28); RED CELL DISTRIBUTION WIDTH 13.7 % (11.5-14.0)
[2019-01-24 18:41] LABS: ABSOLUTE LYMPHOCYTES# (MANUAL) 1.8 10^3/uL (0.5-4.7); ABSOLUTE MONOCYTES # (MANUAL) 0.2 10^3/uL (0.1-1.4); BAND NEUTROPHILS % (MANUAL) 10 % (3-5); BASOPHILS % (MANUAL) 0 % (0-2); EOSINOPHILS % (MANUAL) 0 % (0-6); LYMPHOCYTES % (MANUAL) 9 % (13-45); METAMYELOCYTES % (MANUAL) 1 % (0); MONOCYTES % (MANUAL) 1 % (3-13); SEGMENTED NEUTROPHILS % (MAN) 79 % (42-78); TOTAL CELLS COUNTED 100
[2019-01-24 18:42] LABS: PLATELET COMMENT ADEQUATE
[2019-01-24 18:45] LABS: ANISOCYTOSIS SLIGHT; HYPOCHROMASIA SLIGHT
[2019-01-24] MEDS: DOCUSATE SODIUM 100 MG CAPSULE PO SCH (19:46)
[2019-01-24] MEDS: FERROUS SULFATE 325 MG TABLET PO SCH (19:47)
[2019-01-24] MEDS: IBUPROFEN 800 MG TABLET PO SCH (21:33)
[2019-01-24] MEDS ORDERED: FAMOTIDINE 20 MG TABLET PO SCH (22:00)
[2019-01-24] MEDS ORDERED: IBUPROFEN 800 MG TABLET PO SCH (22:00)
[2019-01-25] MEDS: IBUPROFEN 800 MG TABLET PO SCH ×3 (05:48→22:01)
[2019-01-25 07:06] LABS: HEMATOCRIT 28.2 % (36.0-47.0); HEMOGLOBIN 9.4 g/dL (12.0-15.5); MEAN CORPUSCULAR HEMOGLOBIN 30.1 pg (27.0-33.4); MEAN CORPUSCULAR HGB CONC 33.2 g/dL (32.0-36.0); MEAN CORPUSCULAR VOLUME 91 fl (80-97); PLATELET COUNT 257 10^3/uL (150-450); RED BLOOD COUNT 3.11 10^6/uL (3.72-5.28); RED CELL DISTRIBUTION WIDTH 14.1 % (11.5-14.0); WHITE BLOOD COUNT 14.3 10^3/uL (4.0-10.5)
[2019-01-25] MEDS ORDERED: PRENATAL VITAMIN W DHA CAPSULE PO SCH (10:00)
[2019-01-25] MEDS ORDERED: SENNOSIDES/DOCUSATE 8.6-50 MG 1 EACH TABLET PO SCH (10:00)
--- NOTE | 2019-01-25 10:02 | PDOC PROGRESS REPORT ---
Subjective-OB Progress Note for:: 01/25/19 - PP Day #1, doing well, Hx PPH, no complaints, A+,breast and bottle feeding Physical Exam (OB) Vital Signs: Temp Pulse Resp BP Pulse Ox 97.7 F 40 L 15 113/63 99 01/25/19 08:02 01/25/19 08:02 01/25/19 08:02 01/25/19 08:02 01/25/19 08:02 Intake & Output 01/24/19 01/25/19 01/26/19 06:59 06:59 06:59 Weight 68.2 kg - General General Appearance: Appears well, Alert In distress: None - PIH/Pre-Eclampsia DTR's: 1 + Clonus: Negative Headache: Absent Epigastric Pain: No Visual Changes: No - Lochia Lochia Amount: Scant < 10 ml Lochia Color: Rubra/Red - Abdomen Description: Soft, Round Hernia Present: No Fundal Description: Firm, Midline Fundal Height: u/u - u/2 - Respiratory Respiratory Status: No respiratory distress - Abdominal Inspection: Normal Distension: No distension Tenderness: Nontender - Genitourinary Genitourinary Note: voiding - Extremities Upper extremity: Normal inspection Lower extremities: Normal inspection - Neurological Cognition: Normal Orientation: AAOx4 - Psychological Associated symptoms: Normal affect, Normal mood - Skin Skin Temperature: Warm Skin Moisture: Dry Objective-Diagnostic Laboratory: 01/25/19 06:40 01/24/19 01/24/19 01/24/19 13:06 13:06 17:59 WBC 11.1 H 20.0 H RBC 3.61 L 3.54 L Hgb 10.8 L 10.7 L Hct 32.3 L 31.8 L MCV 89 90 MCH 30.0 30.3 MCHC 33.6 33.6 RDW 13.9 13.7 Plt Count 328 304 Seg Neutrophils % 74.2 Not Reportable Lymphocytes % 17.1 Not Reportable Monocytes % 8.2 Not Reportable Eosinophils % 0.2 Not Reportable Basophils % 0.3 Not Reportable Absolute Neutrophils 8.2 Not Reportable Absolute Lymphocytes 1.9 Not Reportable Absolute Monocytes 0.9 Not Reportable Absolute Eosinophils 0.0 Not Reportable Absolute Basophils 0.0 Not Reportable Blood Type A POSITIVE Antibody Screen NEGATIVE 01/25/19 06:40 WBC 14.3 H RBC 3.11 L Hgb 9.4 L Hct 28.2 L MCV 91 MCH 30.1 MCHC 33.2 RDW 14.1 H Plt Count 257 Seg Neutrophils % Lymphocytes % Monocytes % Eosinophils % Basophils % Absolute Neutrophils Absolute Lymphocytes Absolute Monocytes Absolute Eosinophils Absolute Basophils Blood Type Antibody Screen Assessment and Plan(PN) - Assessment and Plan (1) Acute blood loss anemia Is this a current diagnosis for this admission?: Yes (2) Vaginal delivery Is this a current diagnosis for this admission?: Yes - Time Spent with Patient Time with patient: Less than 15 minutes Medications reviewed and adjusted accordingly: Yes - Disposition Anticipated Discharge: Home Within: within 24 hours
[2019-01-25] MEDS: FERROUS SULFATE 325 MG TABLET PO SCH ×2 (10:17→17:05)
[2019-01-25] MEDS: PRENATAL VITAMIN W DHA CAPSULE PO SCH (10:17)
[2019-01-25] MEDS: SENNOSIDES/DOCUSATE 8.6-50 MG 1 EACH TABLET PO SCH (10:17)
[2019-01-25] MEDS: DOCUSATE SODIUM 100 MG CAPSULE PO SCH ×2 (10:17→17:05)
[2019-01-25] MEDS: ACETAMINOPHEN WITH CODEINE #3 TABLET PO PRN ×2 (17:05→22:45)
[2019-01-26] MEDS: IBUPROFEN 800 MG TABLET PO SCH ×2 (06:57→13:31)
[2019-01-26 07:26] VITALS: BP 104/57
--- NOTE | 2019-01-26 10:49 | PDOC DISCHARGE SUMMARY ---
Final Diagnosis Discharge Date: 01/26/19 - PP Day #2, doing well, no complaints, Hx of PPH this delivery. A+, Rubella immune - Final Diagnosis (1) Acute blood loss anemia Is this a current diagnosis for this admission?: Yes (2) Vaginal delivery Is this a current diagnosis for this admission?: Yes (3) Normal course Is this a current diagnosis for this admission?: Yes Discharge Data - Discharge Medication Prescriptions: Ferrous Sulfate [Feosol 325 mg Tablet] 325 mg PO DAILY #30 tablet Ibuprofen [Motrin 800 mg Tablet] 800 mg PO Q8 #60 tablet Home Medications: No122/Iron/Folic Acid [ Multi Tablet] 1 tab PO DAILY 10/28/16 Ferrous Sulfate [Feosol 325 mg Tablet] 325 mg PO DAILY #30 tablet 01/25/19 Ibuprofen [Motrin 800 mg Tablet] 800 mg PO Q8 #60 tablet 01/25/19 Reason(s) for Admission: Onset of Labor Procedures: NST Intrapartum Procedure(s): : Low Cervical, Transverse - Diagnosis Test Laboratory: Temp Pulse Resp BP Pulse Ox 98.0 F 49 L 16 104/57 L 100 01/26/19 07:25 01/26/19 07:25 01/26/19 07:25 01/26/19 07:25 01/26/19 07:25 01/24/19 01/24/19 01/25/19 13:06 17:59 06:40 RBC 3.61 L 3.54 L 3.11 L Hgb 10.8 L 10.7 L 9.4 L Hct 32.3 L 31.8 L 28.2 L - Discharge information/Instructions Discharge Activity: Activity As Tolerated, No Lifting Over 10 Pounds, Pelvic Rest Discharge Diet: As Tolerated, Regular Disposition: HOME, SELF-CARE Follow up with: [facility] in: 4, Weeks
[2019-01-26] MEDS: FERROUS SULFATE 325 MG TABLET PO SCH (11:12)
[2019-01-26] MEDS: SENNOSIDES/DOCUSATE 8.6-50 MG 1 EACH TABLET PO SCH (11:12)
[2019-01-26] MEDS: DOCUSATE SODIUM 100 MG CAPSULE PO SCH (11:12)
[2019-01-26] MEDS: PRENATAL VITAMIN W DHA CAPSULE PO SCH (11:12)
--- NOTE | 2019-01-30 11:28 | Delivery Summary ---
Del Sum A-C Datetime Report Generated by CPN: 01/30/2019 11:28 DELIVERY PERSONNEL DELIVERY PERSONNEL: [id number] Delivery Doctor:: Kindra Chou CNM Nurse Varnish Maker Certified:: Kindra Chou CNM Labor and Delivery Nurse:: Elizabet Gill RNmedication tech Nurse:: KAUSHAL Sanford Additional Personnel: : KAUSHAL Rosales MATERNAL INFORMATION Delivery Anesthesia: None Medications After Delivery: Pitocin Bolus-Please Comment; Cytotec 600mcg Per Rectum/Vagina Meds After Delivery Comment: Pitocin 20 units in 1000 ml nss open for bolus Delivery QBL: 300 Maternal Complications: None; Precipitous Labor (<3hrs) Provider Comments: Pt progressed quickly, viable female from OA to DAIJA over intact perineum, 1st degree periurethral, spont delivery of grossly nl intact meconium stained placenta, 3 VC, laceration repaired with 2-0 chromic, 2 sutures, FFFM, mild uterine atony, massage, Pitocin and cytotec 600 mcg via rectum. Placenta given to family per pt request, cord blood to lab LABOR SUMMARY EDC: 01/21/2019 00:00 No. Babies in Womb: 1 Attempted: No Labor Anesthesia: None LABOR INFORMATION Reason for Induction: Not Applicable; Oligohydramnios Onset of Labor: 01/24/2019 10:00 Complete Dilatation: 01/24/2019 13:27 Oxytocin: N/A Group B Beta Strep: negative Antibiotics # of Doses: 0 Steroids Given: None Reason Steroids Not Administered: Not Applicable MEMBRANES Membranes Rupture Method: Artificial Rupture of Membranes: 01/24/2019 13:32 Length of Rupture (hr): 0.05 Amniotic Fluid Color: Light Meconium Amniotic Fluid Amount: Moderate Amniotic Fluid Odor: Normal STAGES OF LABOR Stage 1 hr: 3 Stage 1 min: 27 Stage 2 hr: 0 Stage 2 min: 8 Stage 3 hr: 0 Stage 3 min: 6 Total Time in Labor hr: 3 Total Time in Labor min: 41 VAGINAL DELIVERY Episiotomy: None Laceration #1: Periurethral Laceration Extension #1: First Degree Laceration Repair: Not Applicable Laceration Repair Note: repaired with 2-0 vicryl Sponge Count Correct: N/A Sharps Count Correct: N/A CSECTION DELIVERY Primary Indication: N/A Secondary Indication: N/A CSection Incidence: N/A Labor: N/A Elective: N/A CSection Incision: N/A BABY A INFORMATION Delivery Date/Time: 01/24/2019 13:35 Method of Delivery: Vaginal Born in Route : No : N/A Forceps: N/A Vacuum Extraction: N/A Shoulder Dystocia : No PRESENTATION/POSITION BABY A Presentation: Cephalic Cephalic Presentation: Vertex Vertex Position: Right Occipital Anterior Breech Presentation: N/A PLACENTA INFORMATION BABY A Placenta Delivery Time : 01/24/2019 13:41 Placenta Method of Delivery: Spontaneous Placenta Status: Delivered SCORES BABY A Heart Rate 1 min: >100 bpm Resp Effort 1 min: Good Cry Reflex Irritability 1 min: Cough or Sneeze or Pulls Away Muscle Tone 1 min: Active Motion Color 1 min: Body Mila Doce, Extremities Blue Resuscitation Effort 1 min: Tactile Stimulation SCORE 1 MIN: 9 Heart Rate 5 min: >100 bpm Resp Effort 5 min: Good Cry Reflex Irritability 5 min: Cough or Sneeze or Pulls Away Muscle Tone 5 min: Active Motion Color 5 min: Body Mil[place] Doce, Extremities Blue Resuscitation Effort 5 min: N/A SCORE 5 MIN: 9 Resuscitation Effort 10 min: N/A INFORMATION BABY A Gestational Age at Delivery: 40.3 Gestational Status: Full Term- 39- 40.6 Weeks Infant Outcome : Liveborn Infant Condition : Stable Infant Sex: Female IDENTIFICATION BABY A Verification Date/Time: 01/24/2019 14:05 ID Band Number: [id number] Mother's Name Verified: Yes Infant RN Verifying : Lacho GillBRUNO RN student WEIGHT/LENGTH BABY A Birthweight (gm): 3297 Weight (lb): 7 Weight (oz): 4 Length (in): 19.25 Length (cm): 48.90 CORD INFORMATION BABY A No. Cord Vessels: 3 Nuchal Cord : Around Neck x1, Loose Cord Blood Taken: Yes-For Storage (Mom's Blood type +) Infant Suction: None ASSESSMENT BABY A Infant Complications: Meconium Physical Findings at Delivery: Within Normal Limits Infant Respirations: Appears Normal Skin to Skin: Yes Skin to Skin Time (min): 30 Electrical Systems Designer/ALS Called : No Infant Care By: D Bellavance RNC Transferred To: Remains with Mother BABY B INFORMATION : N/A SIGNATURES Signature: with User ID: [email or web address]
== END 2019-01-26 15:50 | disposition home or self-care (01) | DRG 806 ==
LOC: LC 12:25 → EEVIPCON 12:25 → LR 12:40 → 2S 17:28
PROVIDERS: ADMIT Obstetrics & Gynecology Gynecology; ATTEND Obstetrics & Gynecology Gynecology
PROC: 10E0XZZ Delivery of Products of Conception, External Approach (ICD-10-PCS; principal; 2019-01-24)
PROC: 0HQ9XZZ Repair Perineum Skin, External Approach (ICD-10-PCS; 2019-01-24)
DX: O62.3 Precipitate labor (principal); D62 Acute posthemorrhagic anemia; Z37.0 Single live birth; O69.81X0 Labor and delivery complicated by cord around neck, without compression, not applicable or unspecified; O77.0 Labor and delivery complicated by meconium in amniotic fluid; O70.0 First degree perineal laceration during delivery; O62.2 Other uterine inertia; O90.81 Anemia of the puerperium; Z3A.40 40 weeks gestation of pregnancy
CPT/HCPCS: 36415; 85025; 85027; 86592; 86850; 86900; 86901; 94760; J2210; J2405; J2590; J3490